=== PATIENT | female | born 1950 | race Hispanic/Latino ===

== ENCOUNTER 2020-03-12 17:02 | Inpatient (IN) | payer MEDICARE ==
[2020-03-12] MEDS ORDERED: Ondansetron ODT 4 MG TAB PO PRN (20:53)
[2020-03-12] MEDS ORDERED: Acetaminophen 325 MG TAB PO PRN (20:53)
[2020-03-12] MEDS ORDERED: Ondansetron PF 4 MG/2 ML Vial IVP PRN (20:53)
[2020-03-12] MEDS ORDERED: Melatonin 3 MG TAB PO PRN (20:53)
[2020-03-12] MEDS ORDERED: Calcium Carbonate 500 MG ChewTAB PO PRN (20:53)
--- NOTE | 2020-03-12 20:59 | PDOC.HHP ---
Hospitalist HPI - History of Present Illness mandibula pain History of Present Illness: Case of an 69y/o female with pmhx of crest syndrome chronic hyponatremia and pulmonary hypertension who comes to hospital transfer from [facility] due to mandibular abscess. patient refers she was on her usual state of health until 2 weeks ago when she had some denture removed. after the procedure she began with pain and called her dentist who refereed this was normal. she states kept pain kept progressing for which she visited her dentist and was prescribed tylenol #3. she states this was not enough to control the pain which she refers was 10/10 for which she went to a new [facility] which prescribed amoxicillin. patient states that despite this pain continued and she began having episodes of fever and chills and today when she woke up her face was extremely swollen and erythematous for which she decided to go to a hospital for evaluation and later transfer to this institution for surgeon evaluation. Hospitalist ROS - Review of Systems All other systems reviewed; all pertinent +/- noted in HPI/Subj Hospitalist History - Past Surgical History Past Surgical History: reports: Other Surgical History: d/c x 2 - Family History Family History: reports: cancer, cardiac disorder, diabetes mellitus, hypertension - Social History Smoking Status: Never smoker Alcohol: reports: Occassional Drugs: reports: none Living Situation: With Family - Exam General Appearance: NAD, awake alert Eye: PERRL, anicteric sclera ENT: normocephalic atraumatic, moist mucosa ENT - other findings: significant swelling of mandible and surrounding area Heart: RRR, no murmur, no gallops, no rubs, normal peripheral pulses Respiratory: CTAB, no wheezes, no rales, no ronchi Gastrointestinal: soft, non-tender, non-distended, normal bowel sounds Extremities: no cyanosis, no clubbing, no edema Skin: normal turgor, no lesions, no rashes Neurological: cranial nerve grossly intact, normal sensation to touch, no weakness Musculoskeletal: normal tone, normal strength, no muscle wasting Psychiatric: normal affect, normal behavior, A&O x 3 Hospitalist H&P A/P - Problem (1) Mandibular abscess Code(s): M27.2 - INFLAMMATORY CONDITIONS OF JAWS Status: Acute (2) Cellulitis Code(s): L03.90 - CELLULITIS, UNSPECIFIED Status: Acute (3) CREST syndrome Code(s): M34.1 - CR(E)ST SYNDROME Status: Acute (4) Pulmonary hypertension Code(s): I27.20 - PULMONARY HYPERTENSION, UNSPECIFIED Status: Acute (5) Chronic hyponatremia Code(s): E87.1 - HYPO-OSMOLALITY AND HYPONATREMIA Status: Acute - Plan Plan: 69y/o female with the stated pmhx who presents to hospital due to mandibular abscess mandibular abscess / cellulitis - ct consistent with abscess of mandible - surgeon consulted - on iv cleocin - pain management - npo after midnight chronic hyponatremia - pt referes lower than usual - will treat w ivfs - f/u bmp crest syndrome / pulmonary hypertension - continue home meds when able
[2020-03-12 22:37] VITALS: BMI 21.6
[2020-03-12] MEDS: Sodium Chloride 0.9% 1,000 ML IV SCH (23:11)
[2020-03-12] MEDS: Clindamycin/D5W 600 MG in Premix Bag 1 BAG IVPB SCH (23:12)
[2020-03-12] MEDS: HYDROcodone/Acetaminophen 5/325 mg Tablet PO PRN (23:12)
[2020-03-13 04:23] LABS: ALT (SGPT) 12 U/L (8-55); AST (SGOT) 21 U/L (5-34); Albumin 3.5 g/dL (3.4-4.8); Alkaline Phosphatase 92 U/L (40-110); Anion Gap 11 mmol/L (10-20); BUN (Urea Nitrogen) 8 mg/dL (9.8-20.1); Bilirubin, Total 0.4 mg/dL (0.2-1.2); Calc. Creatinine Clearance 63 mL/min (70-130); Calcium 8.4 mg/dL (7.8-10.44); Carbon Dioxide 26 mmol/L (23-31); Chloride 92 mmol/L (98-107); Estimated GFR-MDRD Greater than 90; Globulin 2.4 g/dL (2.4-3.5); Glucose 105 mg/dL (80-115); Potassium 3.8 mmol/L (3.5-5.1); Protein, Total 5.9 g/dL (6.0-8.3); Sodium 125 mmol/L (136-145)
[2020-03-13 04:47] LABS: Eosinophils 1 % (0-10); Hemoglobin 9.5 g/dL (12.0-16.0); Lymphocytes 10 % (21-51); MDiff Complete? YES; Mean Corpuscular HGB CONC 32.8 g/dL (32.0-36.0); Mean Corpuscular Hemoglobin 32.4 pg (27.0-31.0); Mean Corpuscular Volume 98.7 fL (78.0-98.0); Mean Platelet Volume 5.9 fL (7.4-10.4); Monocytes 14 % (0-10); Neutrophil 74 % (42-75); Platelet Count 191 thou/uL (130-400); RBC Distribution Width 13.1 % (11.5-14.5); Reactive Lymphocytes 1 % (0-10); Red Blood Cell (RBC) Count 2.92 mill/uL (4.20-5.40); White Blood Cell (WBC) Count 5.9 thou/uL (4.8-10.8)
[2020-03-13] MEDS: Clindamycin/D5W 600 MG in Premix Bag 1 BAG IVPB SCH ×4 (05:25→23:09)
[2020-03-13 05:33] LABS: SARS-CoV-2 MS2 Positive; SARS-CoV-2 N Gene Negative; SARS-CoV-2 S Gene Negative; SARS-CoV-2 by NAA Not Detected (NotDetected); SARS-CoV-2 orf1ab Negative
[2020-03-13] MEDS: HYDROcodone/Acetaminophen 5/325 mg Tablet PO PRN ×3 (06:10→21:26)
[2020-03-13] MEDS ORDERED: ALPRAZolam 0.5 MG TAB PO PRN (07:47)
[2020-03-13] MEDS ORDERED: Cepastat Lozenges 1 LOZ PO PRN (07:49)
[2020-03-13] MEDS ORDERED: Sodium Chloride 0.65% Nasal 44 ML BOT EA NARE PRN (07:49)
[2020-03-13] MEDS ORDERED: Bisacodyl 10 MG SUPP PR PRN (07:49)
[2020-03-13] MEDS ORDERED: hydrALAZINE 20 MG/ML VIAL SLOW IVP PRN (07:49)
[2020-03-13] MEDS ORDERED: Diabetic Tussin 200 MG/10 ML UDCUP PO PRN (07:49)
[2020-03-13] MEDS ORDERED: Loperamide HCl 2 MG CAP PO PRN (07:49)
[2020-03-13] MEDS ORDERED: Loratadine 10 MG TAB PO PRN (07:49)
[2020-03-13] MEDS ORDERED: Zolpidem Tartrate 5 MG TAB PO PRN (07:49)
[2020-03-13] MEDS ORDERED: FERROUS SULFATE 142 MG PO SCH (08:00)
[2020-03-13] MEDS: Enoxaparin Sodium 40 MG/0.4 ML SYRINGE SC SCH (08:21)
[2020-03-13] MEDS: Levothyroxine Sodium 50 MCG TAB PO SCH (08:21)
[2020-03-13] MEDS: Saccharomyces boulardii 250 MG CAP PO SCH (08:22)
[2020-03-13] MEDS: Ferrous Sulfate 325 MG TAB PO SCH (09:00)
[2020-03-13] MEDS: Furosemide 20 MG TAB PO SCH (09:00)
[2020-03-13] MEDS ORDERED: cycloSPORINE 0.05% Ophthalmic Droperette EA EYE SCH (09:00)
[2020-03-13] MEDS: Folic Acid 1 MG TAB PO SCH (09:00)
[2020-03-13] MEDS: cycloSPORINE 0.05% Ophthalmic Droperette EA EYE SCH ×2 (09:00→21:29)
[2020-03-13] MEDS: Aspirin 81 mg Enteric Coated Tablet PO SCH (09:00)
[2020-03-13] MEDS: Methotrexate Sodium 2.5 MG TAB PO SCH (09:00)
[2020-03-13] MEDS: Multivitamin W/ Minerals 1 TAB PO SCH (09:00)
[2020-03-13] MEDS: Hydroxychloroquine Sulfate 200 MG TAB PO SCH (09:00)
[2020-03-13] MEDS ORDERED: FLU VACC QS2020-21(65YR UP)/PF 240 MCG/0.7 ML SYRINGE IM ONE (09:00)
[2020-03-13] MEDS: Sodium Chloride 1 GM TAB PO SCH ×2 (09:00→18:06)
[2020-03-13 09:17] LABS: Bacteria/HPF None Seen HPF (None Seen); Bilirubin Negative (Negative); Blood, Urine Negative (Negative); Clarity Clear (Clear); Glucose, Urine (Dipstick) Normal (Negative); Ketone, Urine Negative (Negative); Leukocyte Negative Leu/uL (Negative); Nitrite Negative (Negative); Protein, Urine (Dipstick) 30 mg/dL (Neg-Trace); RBC/HPF 0-3 HPF (0-3); Specific Gravity, Urine 1.042 (1.002-1.036); Squamous Epithelial 0-3 HPF (0-3); Urobilinogen Normal mg/dL (Less than 2); pH, Urine 6.5 (5.0-9.0)
[2020-03-13 09:18] LABS: Urine Culture Reflex Yes Yes
--- NOTE | 2020-03-13 11:13 | PDOC.HOSPP ---
- Subjective Encounter Date: 03/13/20 Subjective: Patient has no new health concerns. Jaw lesion is still worker helper to touch, but no pain at rest. She is hungry and thirsty, as per NPO orders as she awaits surgery. She slept well overnight, despite not having her regular night-time O2. She denies fever, SOB, chest pain, or generalized fatigue. - Objective Vital Signs & Weight: Vital Signs (12 hours) Temp Pulse Resp BP Pulse Ox 03/13/20 07:40 99.5 F 75 18 114/63 93 L 03/13/20 03:53 99.0 F 77 12 132/60 93 L 03/12/20 23:36 99.1 F 82 14 147/66 H 92 L Weight Weight 48.534 kg I&O: 03/12/20 03/13/20 03/14/20 06:59 06:59 06:59 Intake Total 460 Balance 460 Result Diagrams: 03/13/20 03:32 03/13/20 03:32 Hospitalist ROS - Review of Systems Constitutional: denies: fever, chills, sweats, weakness Eyes: denies: vision change ENT: denies: throat pain, throat swelling Respiratory: denies: shortness of breath, pleuritic pain Cardiovascular: denies: chest pain, edema Gastrointestinal: denies: nausea, vomiting, abdominal pain, diarrhea, constipation Genitourinary: denies: dysuria Musculoskeletal: reports: other (Denies generalized mm. pain) Skin: denies: rash, bruising Neurological: denies: weakness - Medication Medications: Active Medications Generic Name Dose Route Start Last Admin Trade Name Gaelq PRN Reason Stop Dose Admin Hydrocodone Bitart/Acetaminophen 2 tab 03/12/20 20:53 03/13/20 06:10 Hydrocodone/Acetaminophen 5/325 Mg Tablet PO 2 tab Q4H PRN Administration Severe Pain (7-10) Enoxaparin Sodium 40 mg 03/13/20 09:00 03/13/20 08:21 Enoxaparin Sodium 40 Mg/0.4 Ml Syringe SC 40 mg 0900 TANESHA Administration Clindamycin Phosphate/Dextrose 50 mls @ 100 mls/hr 03/12/20 23:59 03/13/20 05:25 600 mg/ Device IVPB 50 mls Q6HR TANESHA Administration Sodium Chloride 1,000 mls @ 40 mls/hr 03/12/20 21:00 03/12/20 23:11 Normal Saline 0.9% IV 1,000 mls .Q24H TANESHA Administration Levothyroxine Sodium 50 mcg 03/13/20 09:00 03/13/20 08:21 Levothyroxine Sodium 50 Mcg Tab PO 50 mcg DAILY TANESHA Administration Saccharomyces Boulardii 250 mg 03/13/20 09:00 03/13/20 08:22 Saccharomyces Boulardii 250 Mg Cap PO 250 mg DAILY TANESHA Administration - Exam General Appearance: NAD, awake alert Eye: anicteric sclera ENT: normocephalic atraumatic, no oropharyngeal lesions ENT - other findings: Left sided mandibular swelling with tenderness to lateral left chin Neck: supple, symmetric, no JVD Heart: RRR, murmur present, III/IV (systolic, crescendo-decrescendo radiating to the carotids) Respiratory: CTAB, no wheezes, no rales, no ronchi, normal chest expansion Gastrointestinal: soft, non-tender, non-distended, normal bowel sounds Extremities: no cyanosis, no clubbing, no edema (Sclerotic digits present) Neurological: no focal deficits Musculoskeletal: no muscle wasting Psychiatric: normal affect, normal behavior, A&O x 3 Hosp A/P (1) CREST syndrome Code(s): M34.1 - CR(E)ST SYNDROME Status: Acute (2) Chronic hyponatremia Code(s): E87.1 - HYPO-OSMOLALITY AND HYPONATREMIA Status: Acute (3) Mandibular abscess Code(s): M27.2 - INFLAMMATORY CONDITIONS OF JAWS Status: Acute (4) Pulmonary hypertension Code(s): I27.20 - PULMONARY HYPERTENSION, UNSPECIFIED Status: Acute - Plan old records reviewed/req This patient is a 69 YO female with a PMH of CREST syndrome, chronic hyponatremia, and pulmonary HTN who presented yesterday with CC of jaw swelling secondary to mandibular abscess. She is awaiting surgery consult today and is NPO. Her O2 has been low 90s since admission. BP has normalized from 130s systolic yesterday to 114/63 this am. No fever and no leukocytosis or bandemia. H/H is 9.5/28.8 and Sodium is 125. 1. 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 Hyponatremia: at 125 at 3:32 today -continue IV NS and recheck CMP tomorrow am 3. Low O2 sat: denies difficulty breathing but usually requires night-time O2 -monitor vitals Qshift -begin 1L nasal cannula if pt becomes SOB or O2 drops below 90% 4. Normocytic anemia: likely anemia of chronic disease secondary to CREST -monitor CBC qam Patient seen and examined bedside today, agree with above-mentioned note, will consult oral surgeon as ENT cannot do I&D,
--- NOTE | 2020-03-13 12:43 | PDOC.HOSPP ---
- Subjective Encounter Date: 03/13/20 Encounter Time: 10:10 Subjective: Patient seen and examined. No new complaints. No overnight events - Objective Vital Signs & Weight: Vital Signs (12 hours) Temp Pulse Resp BP BP Pulse Ox 03/13/20 12:00 99.1 F 76 18 117/57 L 93 L 03/13/20 08:00 99.5 F 75 18 114/63 93 L 03/13/20 07:40 99.5 F 75 18 114/63 93 L 03/13/20 03:53 99.0 F 77 12 132/60 93 L Weight Weight 107 lb I&O: 03/12/20 03/13/20 03/14/20 06:59 06:59 06:59 Intake Total 460 Balance 460 Result Diagrams: 03/13/20 03:32 03/13/20 03:32 Hospitalist ROS - Review of Systems ENT: denies: ear pain, ear discharge, nose pain, nose discharge, nose congestion, mouth pain, mouth swelling, throat pain, throat swelling, other Respiratory: denies: cough, dry, shortness of breath, hemoptysis, SOB with excertion, pleuritic pain, sputum, wheezing, other Cardiovascular: denies: chest pain, palpitations, orthopnea, paroxysmal noc. dyspnea, edema, light headedness, other Gastrointestinal: denies: nausea, vomiting, abdominal pain, diarrhea, con stipation, melena, hematochezia, other Genitourinary: denies: dysuria, frequency, incontinence, hematuria, retention, other Musculoskeletal: denies: neck pain, shoulder pain, arm pain, back pain, hand pain, leg pain, foot pain, other - Medication Medications: Active Medications Generic Name Dose Route Start Last Admin Trade Name Freq PRN Reason Stop Dose Admin Hydrocodone Bitart/Acetaminophen 2 tab 03/12/20 20:53 03/13/20 06:10 Hydrocodone/Acetaminophen 5/325 Mg Tablet PO 2 tab Q4H PRN Administration Severe Pain (7-10) Enoxaparin Sodium 40 mg 03/13/20 09:00 03/13/20 08:21 Enoxaparin Sodium 40 Mg/0.4 Ml Syringe SC 40 mg 0900 TANESHA Administration Clindamycin Phosphate/Dextrose 50 mls @ 100 mls/hr 03/12/20 23:59 03/13/20 05:25 600 mg/ Device IVPB 50 mls Q6HR TANESHA Administration Sodium Chloride 1,000 mls @ 40 mls/hr 03/12/20 21:00 03/12/20 23:11 Normal Saline 0.9% IV 1,000 mls .Q24H TANESHA Administration Levothyroxine Sodium 50 mcg 03/13/20 09:00 03/13/20 08:21 Levothyroxine Sodium 50 Mcg Tab PO 50 mcg DAILY TANESHA Administration Saccharomyces Boulardii 250 mg 03/13/20 09:00 03/13/20 08:22 Saccharomyces Boulardii 250 Mg Cap PO 250 mg DAILY TANESHA Administration - Exam General Appearance: NAD, awake alert Eye: PERRL, anicteric sclera ENT: normocephalic atraumatic, no oropharyngeal lesions Neck: supple, symmetric, no JVD Heart: RRR, no murmur, no gallops Respiratory: no wheezes, no rales, no ronchi Gastrointestinal: soft, non-tender, non-distended, normal bowel sounds Extremities: no cyanosis, no clubbing Skin: normal turgor, no lesions Neurological: no focal deficits Musculoskeletal: normal tone, normal strength Psychiatric: normal affect, normal behavior Hosp A/P (1) CREST syndrome Code(s): M34.1 - CR(E)ST SYNDROME Status: Acute (2) Chronic hyponatremia Code(s): E87.1 - HYPO-OSMOLALITY AND HYPONATREMIA Status: Acute (3) Mandibular abscess Code(s): M27.2 - INFLAMMATORY CONDITIONS OF JAWS Status: Acute (4) Pulmonary hypertension Code(s): I27.20 - PULMONARY HYPERTENSION, UNSPECIFIED Status: Acute - Plan old records reviewed/req, continue antibiotics This patient is a 69 YO female with a PMH of CREST syndrome, chronic hyponatremia, and pulmonary HTN who presented yesterday with CC of jaw swelling secondary to mandibular abscess. She is awaiting surgery consult today and is NPO. Her O2 has been low 90s since admission. BP has normalized from 130s s ystolic yesterday to 114/63 this am. No fever and no leukocytosis or bandemia. H/H is 9.5/28.8 and Sodium is 125. 1. Mandibular abscess vs cellulitis -awaiting ENT consult; AUTOMATIC FABRIC CUTTER has faxed over CT report, but will repeat imaging here as per ENT -continue IV Clindamycin and pain meds PRN -monitor CBC qam and vitals Qshift -NPO awaiting surgery 2. Hyponatremia: at 125 at 3:32 today -continue IV NS and recheck CMP tomorrow am 3. Low O2 sat: denies difficulty breathing but usually requires night-time O2 -monitor vitals Qshift -begin 1L nasal cannula if pt becomes SOB or O2 drops below 90% 4. Normocytic anemia: likely anemia of chronic disease secondary to CREST -monitor CBC qam Patient seen and examined bedside today, agree with above-mentioned note, will consult oral surgeon as ENT cannot do I&D,
[2020-03-13] MEDS ORDERED: TADALAFIL 20 MG PO SCH (17:00)
[2020-03-13] MEDS ORDERED: [UNRECOGNIZED DRUG - OTHER] PO SCH (17:00)
[2020-03-13] MEDS ORDERED: DHA PO SCH (17:00)
[2020-03-13] MEDS ORDERED: FISH OIL PO SCH (17:00)
[2020-03-13] MEDS ORDERED: OMEGA3 PO SCH (17:00)
[2020-03-13] MEDS ORDERED: EPA PO SCH (17:00)
[2020-03-13] MEDS ORDERED: VIT D3 PO SCH (17:00)
[2020-03-13] MEDS: Fish Oil 1,000 MG CAP PO SCH (17:50)
[2020-03-13] MEDS: Calcium Carbonate 600 MG TAB PO SCH (17:51)
[2020-03-13] MEDS ORDERED: MACITENTAN 10 MG PO SCH (21:00)
[2020-03-13] MEDS: Sodium Chloride 0.9% 1,000 ML IV SCH (21:28)
--- NOTE | 2020-03-14 01:21 | CON ---
DATE OF CONSULTATION: 03/13/2020 CONSULTING PHYSICIAN: Dr. Kovacs. HISTORY OF PRESENT ILLNESS: This is a 69-year-old female who reports having teeth removed several weeks back by a dentist in [facility]. Her postoperative course was complicated by persistent pain and lack of improvement. She states that she returned at some point to the dentist and was determined that a piece of the tooth was left in place, and additional procedure was undertaken at that time to remove this retained piece of tooth. She continued to have issues postoperatively without significant help from the dentist, and she ultimately went to new dentist yesterday and was prescribed amoxicillin. Today, she woke and had significant increase in swelling in the face and presented to an outside hospital. She was subsequently transferred here for higher level of care and I was consulted for evaluation and management due to concerns for facial cellulitis and possible abscess. PAST MEDICAL HISTORY: CREST syndrome, chronic hyponatremia, and pulmonary hypertension. PAST SURGICAL HISTORY: , D and C. SOCIAL HISTORY: Negative for smoking or drugs. Positive for occasional alcohol. CURRENT MEDICATIONS: 1. [place]. 2. Xanax. 3. Aspirin. 4. Dulcolax. 5. Clindamycin 600 mg IV q.6 hours. 6. Lovenox. 7. Lasix. 8. Hydralazine. 9. Hydroxychloroquine sulfate. 10. Levothyroxine. 11. Loperamide. 12. Claritin. 13. Methotrexate. 14. Zofran. 15. Adcirca. 16. Opsumit. ALLERGIES: AZITHROMYCIN, NITROFURANTOIN, PENICILLINS, AND PREDNISONE. REVIEW OF SYSTEMS: Reports the swelling and pain in the submental and anterior perimandibular region. Otherwise, review of systems negative. PHYSICAL EXAMINATION: VITAL SIGNS: Blood pressure 124/58, pulse is 82, temperature 99.1, and 92% oxygen on room air. GENERAL: Alert and oriented x3, in no apparent distress. HEAD AND NECK: No significant cellulitis or edema noted intraorally throughout the buccal and labial vestibule or floor of mouth. All mandibular surgical sites in the mouth appear to be relatively well healed. There is slight gingival erythema in the tooth 26 region. Tooth 28 region where the patient supports the majority of her postoperative healing problems came from, appears relatively well healed without any significant signs of inflammation or infection. The patient is tender to palpation in the anterior submental region and possibly up into the mental region. It is difficult to appreciate any significant facial swelling and it is also difficult to determine and what is cellulitic versus what is tense and fibrotic tissues likely related to her CREST syndrome. More posteriorly in the neck, the tissue is fibrotic and hard feeling. The patient states that this is her baseline normal in this region. Further anteriorly, it is difficult to clearly discern a difference between the anterior aspect and the posterior aspect the patient feels is normal for her. Maximum interincisal opening is normal. LABORATORY DATA: White blood cell count 5.9, hemoglobin 9.5, platelets 191. Chemistry shows a low sodium at 125, low chloride at 92. Negative for SARS-CoV-[address] scan of the face and neck from the outside hospital shows possible fluid collection in the labial vestibular region of the anterior mandible with possibly some signs of cellulitis in the mental and submental regions. On bony windows, there is question about whether or not the patient has retained root tips in the approximately 24th and 25th regions. Additionally, there are some possible changes in the tooth #28 region with areas of hypodensity in the bone, which could be consistent with osteolytic changes such as that seen in early osteomyelitis. However, these changes are somewhat subtle and difficult to definitively diagnose particularly in the context of relatively normal clinical exam in this region. ASSESSMENT: A 69-year-old female status post removal of multiple teeth several weeks prior with postoperative course complicated by refractory pain and difficulty healing, who presents to our hospital with cellulitis involving the mental and submental regions with possible vestibular, perimandibular abscess in the mandibular labial region. Additionally, the patient has changes on CT scan, which could suggest early osteolytic process such as early osteomyelitis. However, this is not definitive and the patient possibly has retained root tips in the 24th and 25th region, which also could be contributing to her current infection. PLAN: 1. Continue IV antibiotics. 2. Start Peridex oral rinses b.i.d. 3. N.p.o. after midnight for a possible trip to the operating room tomorrow pending re-evaluation in the morning. 4. We will continue to follow and consider consultation with Dr. Piña, pending further observation. Job ID: [id number]
[2020-03-14 03:54] LABS: Anion Gap 10 mmol/L (10-20); BUN (Urea Nitrogen) 9 mg/dL (9.8-20.1); Calc. Creatinine Clearance 63 mL/min (70-130); Calcium 8.2 mg/dL (7.8-10.44); Carbon Dioxide 26 mmol/L (23-31); Chloride 95 mmol/L (98-107); Estimated GFR-MDRD Greater than 90; Glucose 80 mg/dL (80-115); Potassium 3.8 mmol/L (3.5-5.1); Sodium 127 mmol/L (136-145)
[2020-03-14 04:52] LABS: Band 11 % (5-11); Eosinophils 2 % (0-10); Hemoglobin 8.9 g/dL (12.0-16.0); Lymphocytes 16 % (21-51); MDiff Complete? YES; Macrocytosis SLIGHT = 6-15 cells (100X) (0-5/hpf); Mean Corpuscular HGB CONC 33.7 g/dL (32.0-36.0); Mean Corpuscular Hemoglobin 33.1 pg (27.0-31.0); Mean Corpuscular Volume 98.3 fL (78.0-98.0); Mean Platelet Volume 5.4 fL (7.4-10.4); Monocytes 14 % (0-10); Neutrophil 57 % (42-75); Platelet Count 148 thou/uL (130-400); Platelet Morphology Comment Appears Adequate; RBC Distribution Width 13.1 % (11.5-14.5); Red Blood Cell (RBC) Count 2.68 mill/uL (4.20-5.40); White Blood Cell (WBC) Count 4.9 thou/uL (4.8-10.8)
[2020-03-14] MEDS: Clindamycin/D5W 600 MG in Premix Bag 1 BAG IVPB SCH ×2 (05:56→12:00)
[2020-03-14] MEDS: HYDROcodone/Acetaminophen 5/325 mg Tablet PO PRN ×2 (08:44→19:24)
[2020-03-14] MEDS: Saccharomyces boulardii 250 MG CAP PO SCH (08:47)
[2020-03-14] MEDS: Hydroxychloroquine Sulfate 200 MG TAB PO SCH (08:47)
[2020-03-14] MEDS: Enoxaparin Sodium 40 MG/0.4 ML SYRINGE SC SCH (08:47)
[2020-03-14] MEDS: Levothyroxine Sodium 50 MCG TAB PO SCH (08:47)
[2020-03-14] MEDS: Folic Acid 1 MG TAB PO SCH (08:47)
[2020-03-14] MEDS: Aspirin 81 mg Enteric Coated Tablet PO SCH (08:47)
[2020-03-14] MEDS: Sodium Chloride 1 GM TAB PO SCH (08:47)
[2020-03-14] MEDS: Furosemide 20 MG TAB PO SCH (08:47)
[2020-03-14] MEDS: cycloSPORINE 0.05% Ophthalmic Droperette EA EYE SCH ×2 (08:47→21:24)
[2020-03-14] MEDS ORDERED: Iopamidol-370 76% 500 ML 1 ML ONE (13:06)
--- NOTE | 2020-03-14 13:55 | PDOC.HOSPP ---
- Subjective Encounter Date: 03/14/20 Encounter Time: 11:30 Subjective: Patient seen and examined. No new complaints. No overnight events - Objective Vital Signs & Weight: Vital Signs (12 hours) Temp Pulse Resp BP Pulse Ox 03/14/20 08:00 99.1 F 83 18 146/60 H 98 Weight Weight 107 lb I&O: 03/13/20 03/14/20 03/15/20 06:59 06:59 06:59 Intake Total 460 700 Balance 460 700 Result Diagrams: 03/14/20 03:22 03/14/20 03:22 Hospitalist ROS - Review of Systems Respiratory: denies: cough, dry, shortness of breath, hemoptysis, SOB with excertion, pleuritic pain, sputum, wheezing, other Cardiovascular: denies: chest pain, palpitations, orthopnea, paroxysmal noc. dyspnea, edema, light headedness, other Gastrointestinal: denies: nausea, vomiting, abdominal pain, diarrhea, constipation, melena, hematochezia, other Genitourinary: denies: dysuria, frequency, incontinence, hematuria, retention, other Musculoskeletal: denies: neck pain, shoulder pain, arm pain, back pain, hand pain, leg pain, foot pain, other - Medication Medications: Active Medications Generic Name Dose Route Start Last Admin Trade Name Freq PRN Reason Stop Dose Admin Hydrocodone Bitart/Acetaminophen 2 tab 03/12/20 20:53 03/14/20 08:44 Hydrocodone/Acetaminophen 5/325 Mg Tablet PO 2 tab Q4H PRN Administration Severe Pain (7-10) Aspirin 81 mg 03/13/20 09:00 03/14/20 08:47 Aspirin 81 Mg Enteric Coated Tablet PO Not Given DAILY [facility] Calcium Carbonate 600 mg 03/13/20 17:00 03/13/20 17:51 Calcium Carbonate 600 Mg Tab PO 600 mg 1700 [facility] Administration Cyclosporine 0 ml 03/13/20 09:00 03/14/20 08:47 Cyclosporine 0.05% Ophthalmic [place] EA EYE Not Given BID [facility] Enoxaparin Sodium 40 mg 03/13/20 09:00 03/14/20 08:47 Enoxaparin Sodium 40 Mg/0.4 Ml Syringe SC Not Given 0900 [facility] Ferrous Sulfate 325 mg 03/13/20 09:00 03/13/20 09:00 Ferrous Sulfate 325 Mg Tab PO Not Given Q2D [facility] Fish Oil 1,000 mg 03/13/20 17:00 03/13/20 17:50 Fish Oil 1,000 Mg Cap PO 1,000 mg 1700 TANESHA Administration Folic Acid 1 mg 03/13/20 09:00 03/14/20 08:47 Folic Acid 1 Mg Tab PO Not Given DAILY TANESHA Furosemide 20 mg 03/13/20 09:00 03/14/20 08:47 Furosemide 20 Mg Tab PO Not Given DAILY TANESHA Hydroxychloroquine Sulfate 200 mg 03/13/20 09:00 03/14/20 08:47 Hydroxychloroquine Sulfate 200 Mg Tab PO Not Given DAILY TANESHA Clindamycin Phosphate/Dextrose 50 mls @ 100 mls/hr 03/12/20 23:59 03/14/20 05:56 600 mg/ Device IVPB 50 mls Q6HR TANESHA Administration Sodium Chloride 1,000 mls @ 40 mls/hr 03/12/20 21:00 03/13/20 21:28 Normal Saline 0.9% IV 1,000 mls .Q24H TANESHA Administration Iron/Minerals/Multivitamins 1 tab 03/13/20 09:00 03/13/20 09:00 Multivitamin W/ Minerals 1 Tab PO Not Given Q2D TANESHA Levothyroxine Sodium 50 mcg 03/13/20 09:00 03/14/20 08:47 Levothyroxine Sodium 50 Mcg Tab PO Not Given DAILY TANESHA Methotrexate Sodium 2.5 mg 03/13/20 09:00 03/13/20 09:00 Methotrexate Sodium 2.5 Mg Tab PO Not Given Q7D TANESHA Saccharomyces Boulardii 250 mg 03/13/20 09:00 03/14/20 08:47 Saccharomyces Boulardii 250 Mg Cap PO Not Given DAILY TANESHA Sodium Chloride 1 gm 03/13/20 09:00 03/14/20 08:47 Sodium Chloride 1 Gm Tab PO Not Given DAILY TANESHA Sodium Chloride 10 ml 03/13/20 09:00 03/13/20 21:28 Flush - Normal Saline 10 Ml Syringe IVF 10 ml Q12HR TANESHA Administration - Exam General Appearance: NAD, awake alert Eye: PERRL, anicteric sclera ENT: normocephalic atraumatic, no oropharyngeal lesions Neck: supple, symmetric, no JVD, no thyromegaly Heart: RRR, no gallops, no rubs, murmur present Respiratory: no wheezes, no rales, no ronchi Gastrointestinal: soft, non-tender, non-distended, normal bowel sounds Extremities: no clubbing, no edema Skin: normal turgor, no lesions Neurological: no focal deficits Musculoskeletal: normal tone, normal strength Psychiatric: normal affect, normal behavior Hosp A/P (1) Mandibular abscess Code(s): M27.2 - INFLAMMATORY CONDITIONS OF JAWS Status: Acute (2) CREST syndrome Code(s): M34.1 - CR(E)ST SYNDROME Status: Chronic (3) Chronic hyponatremia Code(s): E87.1 - HYPO-OSMOLALITY AND HYPONATREMIA Status: Chronic (4) Pulmonary hypertension Code(s): I27.20 - PULMONARY HYPERTENSION, UNSPECIFIED Status: Chronic - Plan old records reviewed/req, continue antibiotics Continue IV clindamycin, patient does not have any clinical change in appearance of swelling over mandible, We will consult infectious disease for evaluation Oral surgeon to decide about incision and debridement
[2020-03-14] MEDS ORDERED: Lidocaine 1% w/Epinephrine 1:100K 20 ML VIAL ONE (15:27)
[2020-03-14] MEDS ORDERED: Bacitracin Zinc Ointment 30 gm TUBE ONE (15:28)
[2020-03-14] MEDS ORDERED: Sodium Chloride 0.9% 10 ML ONE (15:28)
[2020-03-14] MEDS ORDERED: Chlorhexidine Gluconate 15 ML UDCUP SSP ONE ×2 (15:28→16:31)
--- NOTE | 2020-03-14 16:16 | CON ---
DATE OF CONSULTATION: 03/14/2020 REASON FOR CONSULTATION: Submandibular inflammatory process. HISTORY OF PRESENT ILLNESS: A 69-year-old with diagnosis of pulmonary hypertension more than 7 years ago and subsequently identified with CREST syndrome been managed previously with methylprednisolone and now this was switched to Plaquenil and methotrexate and tadalafil among other treatments, who had a tooth extracted in the right mandible several weeks back, which now has progressed to a diffuse inflammatory process in the submandibular area with some element of trismus and pain on mastication. After failing outpatient management with oral antimicrobial therapy, she has been admitted. Dr. Lantigua is going to do a surgical procedure later on today. Right now, she does not appear in distress. No headaches. No visual symptoms. Oral cavity pain and some trismus as well as radiosonde operator pain. No neck pain. Mild dyspnea. She has O2 supplementation at home and no chest pain. No cough or sputum production. No abdominal pain or diarrhea. No genitourinary symptoms. PAST MEDICAL HISTORY: Scleroderma systemic with CREST syndrome, pulmonary hypertension. PAST SURGICAL HISTORY: . SOCIAL HISTORY: Retired cook school cafeteria. She used to live in [place] all her life. Never smoker. She now moved to this area to be with her daughter. Drinks occasionally. MEDICATIONS: 1. [place]. 2. Xanax. 3. Aspirin. 4. Dulcolax. 5. Clindamycin. 6. Lovenox. 7. Lasix. 8. Hydralazine. 9. Plaquenil. 10. Levothyroxine. 11. Loperamide. 12. Claritin. 13. Methotrexate. 14. Zofran. 15. Adcirca. 16. Macitentan, which is an endothelin receptor antagonist for the treatment of pulmonary arterial hypertension. ALLERGIES: AZITHROMYCIN, NITROFURANTOIN, PENICILLIN, AND PREDNISONE. FAMILY HISTORY: Noncontributory. PHYSICAL EXAMINATION: VITAL SIGNS: T-max 99.5 to 99.7, blood pressure 140/60, heart rate 83, respiratory rate 18, and O2 saturation 98% on 2 L nasal cannula. SKIN: Shows tightening of the skin, which is diffuse as expected, some telangiectases in periungual area. LYMPHATIC: No lymphadenopathy. HEENT: Some element of alopecia. Ocular movements conjugate. Oral cavity with numerous missing teeth. There is diffuse submandibular swelling and tenderness, but no drainage. NECK: Supple. No jugular vein distention. LUNGS: Symmetric, clear breath sounds. HEART: S1 and S2. Regular rate. BACK: No back tenderness. ABDOMEN: No organomegaly. No ascites. No bladder distention. No joint inflammatory activity. EXTREMITIES: No edema. Pulses 1+ in dorsalis pedis. NEUROLOGIC: Nonfocal. LABORATORY DATA: White cell count 5.9 and 4.9, hemoglobin 8.9, platelets 148 with 11% bands. Sodium 127, creatinine 0.64. Liver profile normal. Serum total protein 5.9, albumin 3.5. Urinalysis, 7 to 10 wbc's, 30 protein. SARS-CoV not detected. I do not have a chest x-ray here and there is no imaging study of the mandibular area. ASSESSMENT: 1. Scleroderma with CREST syndrome, on various treatments. 2. Dental extraction with submandibular inflammatory process for the past few weeks, which failed outpatient therapy. DISCUSSION: The patient has the usual complication following dental extractions and this has spread now to the left side. She would need a CT of the head and neck or just neck soft tissues, but I am going to wait for Dr. Lantigua to finish his workup and then see what he is going to do and find and we will go from there. She does have some problems with swallowing with pain and she may have inflammatory process in the radiosonde operator space. Extension through the lateral pharyngeal area is a concern as well as posterior pharyngeal area and we will switch her to meropenem. Discontinue clindamycin. She will need protracted antimicrobial therapy plus in addition to surgical intervention. Job ID: [id number]
[2020-03-14] MEDS ORDERED: Clindamycin/D5W 600 mg/50 ml Premix Bag ONE (16:44)
[2020-03-14] MEDS ORDERED: Fentanyl 100 MCG/2 ML VIAL ONE ×2 (17:05→18:11)
[2020-03-14] MEDS ORDERED: Midazolam HCl 2 mg/2 ml Vial ONE (17:05)
[2020-03-14] MEDS: Fish Oil 1,000 MG CAP PO SCH (17:44)
[2020-03-14] MEDS: Calcium Carbonate 600 MG TAB PO SCH (17:44)
[2020-03-14] MEDS ORDERED: PACU-Morphine 4MG/ML VIAL SLOW IVP PRN (17:48)
[2020-03-14] MEDS: MEROPENEM 1 GM/50 ML 1 GM in Premix Bag 1 BAG IVPB SCH (19:18)
[2020-03-14] MEDS: Sodium Chloride 0.9% 1,000 ML IV SCH (21:24)
--- NOTE | 2020-03-14 21:52 | CT ---
CT of the neck with IV contrast: 03/14/2020 COMPARISON: None HISTORY: Pain, swelling, tooth extraction TECHNIQUE: Axial CT imaging at 2.5 mm intervals through the neck with IV contrast. Coronal and sagitt al reformatted imaging obtained FINDINGS: The imaged brain parenchyma is grossly unremarkable. There is mild scattered opacification of the ethmoid air cells. The retroantral fat and parapharyngeal fat appears grossly unremarkable. The parotid glands and the s ubmandibular glands demonstrate fatty atrophy. The imaged lung apices demonstrate prominent linear interstitial density and superimposed groundglass opacity, a nonspecific finding. The tonsillar pillars, the epiglottis and preepiglottic fat, the hyoid bone, the thyroid cartilage, c ricoid cartilage, the level of the glottis, and the thyroid gland demonstrate no acute findings. There is a mildly enlarged lymph node in the superior mediastinum measuring 1 cm anterior to the trac hea. There is diffuse stranding of the subcutaneous fat throughout the neck from the axial level of the an gle of the mandible through the axial level of the thyroid gland, most prominent anterior to the mandible. Anterior to the cortex of the midline mandible there is ill-defined focal hypodensity which appears to be gingival based, measuring 1.4 cm in craniocaudal dimension, 1.4 cm in AP dimension, and 1.2 cm in transverse dimension. This is suspicious for a gingival based abscess extending into th e region of the lower lip. Surrounding soft tissue stranding and fat stranding suggest associated cellulitis. Many of the mandibular and maxillary teeth are absent. Limited assessment of the vascular structures demonstrates scattered atherosclerotic calcification in volving the distal common carotid artery and the proximal internal carotid artery bilaterally. Review of the osseous structures demonstrates no worrisome lytic or blastic bone lesion. The lower lip and to a lesser degree, the upper lip appear edematous and enlarged, particularly on th e sagittal images. IMPRESSION: Diffuse skin thickening and subcutaneous fat stranding as detailed above, most prominent anterior to the midline mandible which suggests gingival based abscess with soft tissue extension and surrounding associated cellulitis. Follow-up imaging following treatment to document resolution i s advised. Underlying mass lesion in this region cannot be excluded.
[2020-03-14] MEDS ORDERED: Chlorhexidine Gluconate 15 ML UDCUP SSP SCH (22:15)
[2020-03-15] MEDS: MEROPENEM 1 GM/50 ML 1 GM in Premix Bag 1 BAG IVPB SCH ×3 (00:49→16:57)
[2020-03-15] MEDS: HYDROcodone/Acetaminophen 5/325 mg Tablet PO PRN ×2 (08:05→23:22)
[2020-03-15] MEDS: Levothyroxine Sodium 50 MCG TAB PO SCH (09:12)
[2020-03-15] MEDS: Sodium Chloride 1 GM TAB PO SCH (09:12)
[2020-03-15] MEDS: Aspirin 81 mg Enteric Coated Tablet PO SCH (09:12)
[2020-03-15] MEDS: Folic Acid 1 MG TAB PO SCH (09:12)
[2020-03-15] MEDS: Saccharomyces boulardii 250 MG CAP PO SCH (09:12)
[2020-03-15] MEDS: Hydroxychloroquine Sulfate 200 MG TAB PO SCH (09:13)
[2020-03-15] MEDS: Furosemide 20 MG TAB PO SCH (09:13)
[2020-03-15] MEDS: Chlorhexidine Gluconate 15 ML UDCUP SSP SCH ×2 (09:14→21:01)
[2020-03-15] MEDS: Enoxaparin Sodium 40 MG/0.4 ML SYRINGE SC SCH (09:14)
[2020-03-15] MEDS: cycloSPORINE 0.05% Ophthalmic Droperette EA EYE SCH ×2 (09:16→21:00)
[2020-03-15] MEDS: Ferrous Sulfate 325 MG TAB PO SCH (09:19)
[2020-03-15] MEDS: Multivitamin W/ Minerals 1 TAB PO SCH (09:19)
--- NOTE | 2020-03-15 10:39 | OP ---
DATE OF PROCEDURE: 03/14/2020 PREOPERATIVE DIAGNOSES: 1. Submental cellulitis. 2. Mandibular labial vestibular abscess. POSTOPERATIVE DIAGNOSES: 1. Mandibular labial vestibular abscess. 2. Submental cellulitis. 3. 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 PROCEDURES PERFORMED: Transoral incision and drainage of mandibular labial vestibular abscess. INDICATION: This is a female with a complicated past medical history including CREST syndrome and pulmonary hypertension, who is on chronic immunosuppression and has a prolonged 4 to 5-year history of risedronate use, who had multiple teeth removed towards the beginning of January by her dentist. She had a protracted and problematic postoperative course with delayed healing, possibly retained root fragments, which were subsequently removed and more recently acute onset of cellulitis and swelling in the perimandibular region, for which she presented to an outside hospital. 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 She is brought to the operating room at this time for incision and drainage of the possible labial vestibular abscess. DESCRIPTION OF PROCEDURE: The patient was identified in preoperative holding and all questions were answered. She was subsequently taken to the operating room and a conscious intravenous sedation was performed by the Anesthesia Service. The oral cavity was prepped and a surgical time-out was performed. Local anesthetic was delivered with mental nerve blocks using lidocaine and epinephrine. After local anesthesia was obtained, a 15 blade was used to make a vestibular incision in the anterior right mandibular region labially. The labial vestibule was opened and a small amount of purulent sanguineous type discharge was countered. Culture swabs were taken and sent for Gram stain, culture and sensitivities. The vestibule was opened extending down to the inferior border region and all purulent sanguinous type discharge was decompressed. This wound was debrided and irrigated copiously with bacitracin infused normal saline. After copious irrigation and decompression of the fluid collection, the patient's oral cavity was suctioned free of fluid, debris, and the gauze pressure pack was placed, soaked in bacitracin, infused normal saline. The patient recovered from the conscious sedation without difficulty and was transferred to recovery room in good condition. ESTIMATED BLOOD LOSS: 5 mL. INTRAVENOUS FLUIDS: Please see anesthetic record. SPECIMENS: Purulent sanguinous discharge from the mandibular labial vestibule. IMPLANTS: None. DRAINS: None. FINDINGS: Purulent sanguinous discharge from the mandibular labial vestibular region. DISPOSITION: The patient tolerated the procedure well. She was transferred to the recovery room in good condition. Job ID: [id number]
--- NOTE | 2020-03-15 16:30 | PDOC.HOSPP ---
- Subjective Encounter Date: 03/15/20 Encounter Time: 07:00 Subjective: Patient seen for follow-up regarding mandibular abscess. She reports feeling better. She denies chest pain or shortness of breath. - Objective Vital Signs & Weight: Vital Signs (12 hours) Temp Pulse Resp BP Pulse Ox 03/15/20 08:00 98.7 F 91 18 144/67 H 99 03/15/20 04:56 98.4 F 79 16 151/65 H 100 Weight Weight 107 lb I&O: 03/14/20 03/15/20 03/16/20 06:59 06:59 06:59 Intake Total 700 420 Balance 700 420 Result Diagrams: 03/14/20 03:22 03/14/20 03:22 Additional Labs: Labs and MAR reviewed by nc Hospitalist ROS - Review of Systems Cardiovascular: denies: chest pain, palpitations, orthopnea, paroxysmal noc. dyspnea, edema, light headedness Gastrointestinal: denies: nausea, vomiting, abdominal pain, diarrhea, constipation, melena, hematochezia - Medication Medications: Active Medications Generic Name Dose Route Start Last Admin Trade Name Freq PRN Reason Stop Dose Admin Hydrocodone Bitart/Acetaminophen 2 tab 03/12/20 20:53 03/15/20 08:05 Hydrocodone/Acetaminophen 5/325 Mg Tablet PO 2 tab Q4H PRN Administration Severe Pain (7-10) Alprazolam 0.5 mg 03/13/20 07:47 03/14/20 15:37 Alprazolam 0.5 Mg Tab PO 0.5 mg BID PRN Administration Anxiety Aspirin 81 mg 03/13/20 09:00 03/15/20 09:12 Aspirin 81 Mg Enteric Coated Tablet PO 81 mg DAILY TANESHA Administration Calcium Carbonate 600 mg 03/13/20 17:00 03/14/20 17:44 Calcium Carbonate 600 Mg Tab PO Not Given 1700 TANESHA Chlorhexidine Gluconate 15 ml 03/15/20 09:00 03/15/20 09:14 Chlorhexidine Gluconate 15 Ml Udcup SSP 15 ml BID TANESHA Administration Cyclosporine 0 ml 03/13/20 09:00 03/15/20 09:16 Cyclosporine 0.05% Ophthalmic Droperette EA EYE Not Given BID TANESHA Enoxaparin Sodium 40 mg 03/13/20 09:00 03/15/20 09:14 Enoxaparin Sodium 40 Mg/0.4 Ml Syringe SC 40 mg 0900 TANESHA Administration Ferrous Sulfate 325 mg 03/13/20 09:00 03/15/20 09:19 Ferrous Sulfate 325 Mg Tab PO 325 mg Q2D TANESHA Administration Fish Oil 1,000 mg 03/13/20 17:00 03/14/20 17:44 Fish Oil 1,000 Mg Cap PO Not Given 1700 TANESHA Folic Acid 1 mg 03/13/20 09:00 03/15/20 09:12 Folic Acid 1 Mg Tab PO 1 mg DAILY TANESHA Administration Furosemide 20 mg 03/13/20 09:00 03/15/20 09:13 Furosemide 20 Mg Tab PO 20 mg DAILY TANESHA Administration Hydroxychloroquine Sulfate 200 mg 03/13/20 09:00 03/15/20 09:13 Hydroxychloroquine Sulfate 200 Mg Tab PO 200 mg DAILY TANESHA Administration Sodium Chloride 1,000 mls @ 40 mls/hr 03/12/20 21:00 03/14/20 21:24 Normal Saline 0.9% IV Not Given .Q24H TANESHA Meropenem 1 gm/ Device 50 mls @ 100 mls/hr 03/14/20 17:00 03/15/20 09:16 IVPB 50 mls 0100,0900,1700 TANESHA Administration Iron/Minerals/Multivitamins 1 tab 03/13/20 09:00 03/15/20 09:19 Multivitamin W/ Minerals 1 Tab PO 1 tab Q2D TANESHA Administration Levothyroxine Sodium 50 mcg 03/13/20 09:00 03/15/20 09:12 Levothyroxine Sodium 50 Mcg Tab PO 50 mcg DAILY TANESHA Administration Methotrexate Sodium 2.5 mg 03/13/20 09:00 03/13/20 09:00 Methotrexate Sodium 2.5 Mg Tab PO Not Given Q7D TANESHA Saccharomyces Boulardii 250 mg 03/13/20 09:00 03/15/20 09:12 Saccharomyces Boulardii 250 Mg Cap PO 250 mg DAILY TANESHA Administration Sodium Chloride 1 gm 03/13/20 09:00 03/15/20 09:12 Sodium Chloride 1 Gm Tab PO 1 gm DAILY TANESHA Administration Sodium Chloride 10 ml 03/13/20 09:00 03/15/20 09:15 Flush - Normal Saline 10 Ml Syringe IVF 10 ml Q12HR TANESHA Administration - Exam General Appearance: awake alert Eye: anicteric sclera ENT: moist mucosa Neck: supple Heart: RRR Respiratory: CTAB Gastrointestinal: soft, non-tender Skin: no rashes Neurological: cranial nerve grossly intact Musculoskeletal: no muscle wasting Psychiatric: normal affect, normal behavior Hosp A/P - Plan -Assessment (1) Mandibular abscess Code(s): M27.2 - INFLAMMATORY CONDITIONS OF JAWS Status: Acute (2) Chronic hyponatremia Code(s): E87.1 - HYPO-OSMOLALITY AND HYPONATREMIA Status: Chronic (3) CREST syndrome Code(s): M34.1 - CR(E)ST SYNDROME Status: Chronic (4) Pulmonary hypertension Code(s): I27.20 - PULMONARY HYPERTENSION, UNSPECIFIED Status: Chronic - Plan Status post incision and drainage on March 14, 2020. Continue IV meropenem, follow cultures and adjust antibiotics as needed. OMFS/ID service is following.
[2020-03-15] MEDS: Fish Oil 1,000 MG CAP PO SCH (16:56)
[2020-03-15] MEDS: Calcium Carbonate 600 MG TAB PO SCH (16:56)
[2020-03-15] MEDS: Sodium Chloride 0.9% 1,000 ML IV SCH (16:57)
[2020-03-15] MEDS: Senokot S 8.6-50 MG TAB PO PRN (18:55)
[2020-03-16] MEDS: MEROPENEM 1 GM/50 ML 1 GM in Premix Bag 1 BAG IVPB SCH ×3 (00:46→17:15)
[2020-03-16] MEDS: Furosemide 20 MG TAB PO SCH (09:09)
[2020-03-16] MEDS: Levothyroxine Sodium 50 MCG TAB PO SCH (09:09)
[2020-03-16] MEDS: Folic Acid 1 MG TAB PO SCH (09:09)
[2020-03-16] MEDS: Hydroxychloroquine Sulfate 200 MG TAB PO SCH (09:09)
[2020-03-16] MEDS: Sodium Chloride 1 GM TAB PO SCH (09:09)
[2020-03-16] MEDS: Enoxaparin Sodium 40 MG/0.4 ML SYRINGE SC SCH (09:09)
[2020-03-16] MEDS: Saccharomyces boulardii 250 MG CAP PO SCH (09:09)
[2020-03-16] MEDS: Aspirin 81 mg Enteric Coated Tablet PO SCH (09:09)
[2020-03-16] MEDS: Chlorhexidine Gluconate 15 ML UDCUP SSP SCH ×2 (09:10→20:19)
[2020-03-16] MEDS: cycloSPORINE 0.05% Ophthalmic Droperette EA EYE SCH ×2 (09:10→20:05)
[2020-03-16] MEDS: Senokot S 8.6-50 MG TAB PO PRN (09:13)
--- NOTE | 2020-03-16 14:13 | PDOC.HOSPP ---
- Subjective Encounter Date: 03/16/20 Encounter Time: 07:00 Subjective: Patient seen for follow-up for mandibular abscess. She reports feeling better. She denies any chest pain or shortness of breath. Appetite is good. - Objective Vital Signs & Weight: Vital Signs (12 hours) Temp Pulse Resp BP Pulse Ox 03/16/20 08:00 98.4 F 74 18 130/60 97 Weight Weight 107 lb I&O: 03/15/20 03/16/20 03/17/20 06:59 06:59 06:59 Intake Total 420 2340 340 Balance 420 2340 340 Result Diagrams: 03/14/20 03:22 03/14/20 03:22 Additional Labs: I reviewed patient's labs and MAR Hospitalist ROS - Review of Systems Cardiovascular: denies: chest pain, palpitations, orthopnea, paroxysmal noc. dyspnea, edema, light headedness Skin: denies: rash, lesions, amber, bruising - Medication Medications: Active Medications Generic Name Dose Route Start Last Admin Trade Name Freq PRN Reason Stop Dose Admin Hydrocodone Bitart/Acetaminophen 2 tab 03/12/20 20:53 03/15/20 23:22 Hydrocodone/Acetaminophen 5/325 Mg Tablet PO 2 tab Q4H PRN Administration Severe Pain (7-10) Alprazolam 0.5 mg 03/13/20 07:47 03/14/20 15:37 Alprazolam 0.5 Mg Tab PO 0.5 mg BID PRN Administration Anxiety Aspirin 81 mg 03/13/20 09:00 03/16/20 09:09 Aspirin 81 Mg Enteric Coated Tablet PO 81 mg DAILY TANESHA Administration Calcium Carbonate 600 mg 03/13/20 17:00 03/15/20 16:56 Calcium Carbonate 600 Mg Tab PO 600 mg 1700 TANESHA Administration Chlorhexidine Gluconate 15 ml 03/15/20 09:00 03/16/20 09:10 Chlorhexidine Gluconate 15 Ml Udcup SSP 15 ml BID TANESHA Administration Cyclosporine 0 ml 03/13/20 09:00 03/16/20 09:10 Cyclosporine 0.05% Ophthalmic Droperette EA EYE Not Given BID TANESHA Enoxaparin Sodium 40 mg 03/13/20 09:00 03/16/20 09:09 Enoxaparin Sodium 40 Mg/0.4 Ml Syringe SC 40 mg 0900 TANESHA Administration Ferrous Sulfate 325 mg 03/13/20 09:00 03/15/20 09:19 Ferrous Sulfate 325 Mg Tab PO 325 mg Q2D TANESHA Administration Fish Oil 1,000 mg 03/13/20 17:00 03/15/20 16:56 Fish Oil 1,000 Mg Cap PO 1,000 mg 1700 TANESHA Administration Folic Acid 1 mg 03/13/20 09:00 03/16/20 09:09 Folic Acid 1 Mg Tab PO 1 mg DAILY TANESHA Administration Furosemide 20 mg 03/13/20 09:00 03/16/20 09:09 Furosemide 20 Mg Tab PO 20 mg DAILY TANESHA Administration Hydroxychloroquine Sulfate 200 mg 03/13/20 09:00 03/16/20 09:09 Hydroxychloroquine Sulfate 200 Mg Tab PO 200 mg DAILY TANESHA Administration Sodium Chloride 1,000 mls @ 40 mls/hr 03/12/20 21:00 03/15/20 16:57 Normal Saline 0.9% IV 1,000 mls .Q24H TANESHA Administration Meropenem 1 gm/ Device 50 mls @ 100 mls/hr 03/14/20 17:00 03/16/20 09:10 IVPB 50 mls 0100,0900,1700 TANESHA Administration Iron/Minerals/Multivitamins 1 tab 03/13/20 09:00 03/15/20 09:19 Multivitamin W/ Minerals 1 Tab PO 1 tab Q2D TANESHA Administration Levothyroxine Sodium 50 mcg 03/13/20 09:00 03/16/20 09:09 Levothyroxine Sodium 50 Mcg Tab PO 50 mcg DAILY TANESHA Administration Methotrexate Sodium 2.5 mg 03/13/20 09:00 03/13/20 09:00 Methotrexate Sodium 2.5 Mg Tab PO Not Given Q7D [facility] Saccharomyces Boulardii 250 mg 03/13/20 09:00 03/16/20 09:09 Saccharomyces Boulardii 250 Mg Cap PO 250 mg DAILY TANESHA Administration Senna/Docusate Sodium 2 tab 03/13/20 07:49 03/16/20 09:13 Senokot S 8.6-50 Mg Tab PO 2 tab BID PRN Administration Constipation Sodium Chloride 1 gm 03/13/20 09:00 03/16/20 09:09 Sodium Chloride 1 Gm Tab PO 1 gm DAILY TANESHA Administration Sodium Chloride 10 ml 03/13/20 09:00 03/16/20 09:11 Flush - Normal Saline 10 Ml Syringe IVF 10 ml Q12HR TANESHA Administration Sodium Chloride 10 ml 03/13/20 08:15 03/15/20 16:58 Flush - Normal Saline 10 Ml Syringe IVF 10 ml PRN PRN Administration Saline Flush - Exam General Appearance: NAD Eye: anicteric sclera ENT: moist mucosa Neck: supple Heart: RRR Respiratory: CTAB Gastrointestinal: soft, non-tender Skin: no rashes Musculoskeletal: no muscle wasting Psychiatric: normal affect, normal behavior Hosp A/P - Plan -Assessment (1) Mandibular abscess Code(s): M27.2 - INFLAMMATORY CONDITIONS OF JAWS Status: Acute (2) CREST syndrome Code(s): M34.1 - CR(E)ST SYNDROME Status: Chronic (3) Chronic hyponatremia Code(s): E87.1 - HYPO-OSMOLALITY AND HYPONATREMIA Status: Chronic (4) Pulmonary hypertension Code(s): I27.20 - PULMONARY HYPERTENSION, UNSPECIFIED Status: Chronic - Plan Status post incision and drainage on March 14, 2020. Patient is on intravenous meropenem. Cultures pending. OMFS/ID service is following.
[2020-03-16] MEDS: Fish Oil 1,000 MG CAP PO SCH (17:17)
[2020-03-16] MEDS: Calcium Carbonate 600 MG TAB PO SCH (17:17)
[2020-03-16] MEDS: Sodium Chloride 0.9% 1,000 ML IV SCH (20:19)
[2020-03-16] MEDS: HYDROcodone/Acetaminophen 5/325 mg Tablet PO PRN (20:19)
[2020-03-17] MEDS: MEROPENEM 1 GM/50 ML 1 GM in Premix Bag 1 BAG IVPB SCH ×3 (00:25→17:25)
[2020-03-17] MEDS: Chlorhexidine Gluconate 15 ML UDCUP SSP SCH ×2 (09:25→19:59)
[2020-03-17] MEDS: Enoxaparin Sodium 40 MG/0.4 ML SYRINGE SC SCH (09:25)
[2020-03-17] MEDS: Ferrous Sulfate 325 MG TAB PO SCH (09:25)
[2020-03-17] MEDS: Saccharomyces boulardii 250 MG CAP PO SCH (09:25)
[2020-03-17] MEDS: Folic Acid 1 MG TAB PO SCH (09:25)
[2020-03-17] MEDS: Furosemide 20 MG TAB PO SCH (09:25)
[2020-03-17] MEDS: Levothyroxine Sodium 50 MCG TAB PO SCH (09:25)
[2020-03-17] MEDS: Aspirin 81 mg Enteric Coated Tablet PO SCH (09:25)
[2020-03-17] MEDS: Sodium Chloride 1 GM TAB PO SCH (09:25)
[2020-03-17] MEDS: cycloSPORINE 0.05% Ophthalmic Droperette EA EYE SCH ×3 (09:26→19:56)
[2020-03-17] MEDS: Hydroxychloroquine Sulfate 200 MG TAB PO SCH (09:26)
[2020-03-17] MEDS: Multivitamin W/ Minerals 1 TAB PO SCH (09:26)
[2020-03-17] MEDS: HYDROcodone/Acetaminophen 5/325 mg Tablet PO PRN (13:59)
[2020-03-17] MEDS: Tadalafil [Adcirca] 20 MG PO SCH ×5 (14:29→20:01)
[2020-03-17] MEDS: Macitentan [Opsumit] 10 MG PO SCH ×5 (14:30→20:01)
--- NOTE | 2020-03-17 16:00 | PDOC.HOSPP ---
- Subjective Encounter Date: 03/17/20 Encounter Time: 07:00 Subjective: Patient seen for follow-up regarding mandibular abscess. She reports feeling better. - Objective Vital Signs & Weight: Vital Signs (12 hours) Temp Pulse Resp BP Pulse Ox 03/17/20 07:40 98.5 F 71 16 141/65 H 99 Weight Weight 107 lb I&O: 03/16/20 03/17/20 03/18/20 06:59 06:59 06:59 Intake Total 2340 1880 Balance 2340 1880 Result Diagrams: 03/14/20 03:22 03/14/20 03:22 Additional Labs: Labs and MAR reviewed by nm Hospitalist ROS - Review of Systems Cardiovascular: denies: chest pain, palpitations, orthopnea, paroxysmal noc. dyspnea, edema, light headedness Gastrointestinal: denies: nausea, vomiting, constipation, melena, hematochezia - Medication Medications: Active Medications Generic Name Dose Route Start Last Admin Trade Name Freq PRN Reason Stop Dose Admin Hydrocodone Bitart/Acetaminophen 2 tab 03/12/20 20:53 03/17/20 13:59 Hydrocodone/Acetaminophen 5/325 Mg Tablet PO 2 tab Q4H PRN Administration Severe Pain (7-10) Alprazolam 0.5 mg 03/13/20 07:47 03/14/20 15:37 Alprazolam 0.5 Mg Tab PO 0.5 mg BID PRN Administration Anxiety Aspirin 81 mg 03/13/20 09:00 03/17/20 09:25 Aspirin 81 Mg Enteric Coated Tablet PO 81 mg DAILY TANESHA Administration Calcium Carbonate 600 mg 03/13/20 17:00 03/16/20 17:17 Calcium Carbonate 600 Mg Tab PO 600 mg 1700 TANESHA Administration Chlorhexidine Gluconate 15 ml 03/15/20 09:00 03/17/20 09:25 Chlorhexidine Gluconate 15 Ml Udcup SSP 15 ml BID TANESHA Administration Cyclosporine 0 ml 03/13/20 09:00 03/17/20 09:31 Cyclosporine 0.05% Ophthalmic Droperette EA EYE Not Given BID TANESHA Enoxaparin Sodium 40 mg 03/13/20 09:00 03/17/20 09:25 Enoxaparin Sodium 40 Mg/0.4 Ml Syringe SC 40 mg 0900 TANEHSA Administration Ferrous Sulfate 325 mg 03/13/20 09:00 03/17/20 09:25 Ferrous Sulfate 325 Mg Tab PO 325 mg Q2D TANESHA Administration Fish Oil 1,000 mg 03/13/20 17:00 03/16/20 17:17 Fish Oil 1,000 Mg Cap PO 1,000 mg 1700 TANESHA Administration Folic Acid 1 mg 03/13/20 09:00 03/17/20 09:25 Folic Acid 1 Mg Tab PO 1 mg DAILY TANESHA Administration Furosemide 20 mg 03/13/20 09:00 03/17/20 09:25 Furosemide 20 Mg Tab PO 20 mg DAILY TANESHA Administration Hydroxychloroquine Sulfate 200 mg 03/13/20 09:00 03/17/20 09:26 Hydroxychloroquine Sulfate 200 Mg Tab PO 200 mg DAILY TANESHA Administration Sodium Chloride 1,000 mls @ 40 mls/hr 03/12/20 21:00 03/16/20 20:19 Normal Saline 0.9% IV 1,000 mls .Q24H TANESHA Administration Meropenem 1 gm/ Device 50 mls @ 100 mls/hr 03/14/20 17:00 03/17/20 09:26 IVPB 50 mls 0100,0900,1700 TANESHA Administration Iron/Minerals/Multivitamins 1 tab 03/13/20 09:00 03/17/20 09:26 Multivitamin W/ Minerals 1 Tab PO 1 tab Q2D TANESHA Administration Levothyroxine Sodium 50 mcg 03/13/20 09:00 03/17/20 09:25 Levothyroxine Sodium 50 Mcg Tab PO 50 mcg DAILY TANESHA Administration Methotrexate Sodium 2.5 mg 03/13/20 09:00 03/13/20 09:00 Methotrexate Sodium 2.5 Mg Tab PO Not Given Q7D TANESHA Macitentan [Opsumit] 0 each 03/13/20 21:00 03/17/20 14:36 10 Mg PO Not Given HS TANESHA Tadalafil [Adcirca] 0 each 03/13/20 17:00 03/17/20 14:35 20 Mg PO Not Given QPM-WM TANESHA Saccharomyces Boulardii 250 mg 03/13/20 09:00 03/17/20 09:25 Saccharomyces Boulardii 250 Mg Cap PO 250 mg DAILY TANESHA Administration Senna/Docusate Sodium 2 tab 03/13/20 07:49 03/16/20 09:13 Senokot S 8.6-50 Mg Tab PO 2 tab BID PRN Administration Constipation Sodium Chloride 1 gm 03/13/20 09:00 03/17/20 09:25 Sodium Chloride 1 Gm Tab PO 1 gm DAILY TANESHA Administration Sodium Chloride 10 ml 03/13/20 09:00 03/17/20 09:26 Flush - Normal Saline 10 Ml Syringe IVF 10 ml Q12HR TANESHA Administration Sodium Chloride 10 ml 03/13/20 08:15 03/15/20 16:58 Flush - Normal Saline 10 Ml Syringe IVF 10 ml PRN PRN Administration Saline Flush - Exam General Appearance: awake alert ENT: normocephalic atraumatic Heart: RRR Respiratory: CTAB Gastrointestinal: non-tender, normal bowel sounds Skin: no rashes Psychiatric: normal affect, normal behavior Hosp A/P - Plan -Assessment (1) Mandibular abscess Code(s): M27.2 - INFLAMMATORY CONDITIONS OF JAWS Status: Acute (2) CREST syndrome Code(s): M34.1 - CR(E)ST SYNDROME Status: Chronic (3) Chronic hyponatremia Code(s): E87.1 - HYPO-OSMOLALITY AND HYPONATREMIA Status: Chronic (4) Pulmonary hypertension Code(s): I27.20 - PULMONARY HYPERTENSION, UNSPECIFIED Status: Chronic - Plan Status post I&D, continue IV meropenem. Urine culture is growing presumptive E coli. Mandibular abscess is growing St reptococcus anginosus group. Infectious diseases service and oral maxillofacial surgery service are following. Likely home in 24 to 48 hours.
[2020-03-17] MEDS: Fish Oil 1,000 MG CAP PO SCH (17:24)
[2020-03-17] MEDS: Calcium Carbonate 600 MG TAB PO SCH (17:25)
[2020-03-18] MEDS: Sodium Chloride 0.9% 1,000 ML IV SCH ×2 (00:24→20:35)
[2020-03-18] MEDS: MEROPENEM 1 GM/50 ML 1 GM in Premix Bag 1 BAG IVPB SCH ×2 (00:24→08:08)
[2020-03-18] MEDS: HYDROcodone/Acetaminophen 5/325 mg Tablet PO PRN ×2 (00:26→20:31)
[2020-03-18] MEDS: Folic Acid 1 MG TAB PO SCH (08:03)
[2020-03-18] MEDS: Furosemide 20 MG TAB PO SCH (08:03)
[2020-03-18] MEDS: Hydroxychloroquine Sulfate 200 MG TAB PO SCH (08:03)
[2020-03-18] MEDS: Aspirin 81 mg Enteric Coated Tablet PO SCH (08:03)
[2020-03-18] MEDS: Saccharomyces boulardii 250 MG CAP PO SCH (08:04)
[2020-03-18] MEDS: Enoxaparin Sodium 40 MG/0.4 ML SYRINGE SC SCH ×2 (08:04→08:06)
[2020-03-18] MEDS: Sodium Chloride 1 GM TAB PO SCH (08:04)
[2020-03-18] MEDS: Levothyroxine Sodium 50 MCG TAB PO SCH (08:04)
[2020-03-18] MEDS: Chlorhexidine Gluconate 15 ML UDCUP SSP SCH ×2 (08:05→20:32)
[2020-03-18] MEDS: cycloSPORINE 0.05% Ophthalmic Droperette EA EYE SCH ×2 (08:06→21:41)
[2020-03-18 14:22] LABS: #Eosinphils 0.1 thou/uL (0.0-0.7); #Lymphocytes 0.9 thou/uL (1.20-3.40); #Monocytes 0.5 thou/uL (0.11-0.59); #Neutrophils 2.4 thou/uL (1.40-6.50); %Basophils 0.6 % (0.0-1.0); %Eosinophils 3.7 % (0.0-10.0); %Lymphocytes 22.7 % (21.0-51.0); %Monocytes 12.9 % (0.0-10.0); %Neutrophils 60.2 % (42.0-75.0); Hemoglobin 9.5 g/dL (12.0-16.0); Mean Corpuscular HGB CONC 33.6 g/dL (32.0-36.0); Mean Corpuscular Hemoglobin 33.2 pg (27.0-31.0); Mean Corpuscular Volume 98.9 fL (78.0-98.0); Mean Platelet Volume 5.5 fL (7.4-10.4); Platelet Count 201 thou/uL (130-400); RBC Distribution Width 13.4 % (11.5-14.5); Red Blood Cell (RBC) Count 2.85 mill/uL (4.20-5.40)
[2020-03-18 14:33] LABS: Anion Gap 11 mmol/L (10-20); BUN (Urea Nitrogen) 4 mg/dL (9.8-20.1); Calc. Creatinine Clearance 69 mL/min (70-130); Calcium 8.4 mg/dL (7.8-10.44); Carbon Dioxide 30 mmol/L (23-31); Chloride 96 mmol/L (98-107); Estimated GFR-MDRD Greater than 90; Glucose 91 mg/dL (80-115); Potassium 3.8 mmol/L (3.5-5.1); Sodium 133 mmol/L (136-145)
--- NOTE | 2020-03-18 15:25 | PDOC.HOSPP ---
- Subjective Encounter Date: 03/18/20 Encounter Time: 15:23 Subjective: Patient seen for follow-up for mandibular abscess. She reports that she slept well. She reports feeling better. - Objective Vital Signs & Weight: Vital Signs (12 hours) Temp Pulse Resp BP Pulse Ox 03/18/20 07:28 98.0 F 69 14 142/65 H 98 Weight Weight 107 lb I&O: 03/17/20 03/18/20 03/19/20 06:59 06:59 06:59 Intake Total 1880 1610 Balance 1880 1610 Result Diagrams: 03/18/20 14:01 03/18/20 14:01 Additional Labs: Labs and MAR reviewed by or Hospitalist ROS - Review of Systems Constitutional: denies: fever, chills, sweats, weakness, malaise ENT: denies: ear pain, nose pain, nose congestion, mouth pain, mouth swelling, throat pain, throat swelling - Medication Medications: Active Medications Generic Name Dose Route Start Last Admin Trade Name Freq PRN Reason Stop Dose Admin Hydrocodone Bitart/Acetaminophen 2 tab 03/12/20 20:53 03/18/20 00:26 Hydrocodone/Acetaminophen 5/325 Mg Tablet PO 2 tab Q4H PRN Administration Severe Pain (7-10) Alprazolam 0.5 mg 03/13/20 07:47 03/14/20 15:37 Alprazolam 0.5 Mg Tab PO 0.5 mg BID PRN Administration Anxiety Aspirin 81 mg 03/13/20 09:00 03/18/20 08:03 Aspirin 81 Mg Enteric Coated Tablet PO 81 mg DAILY TANESHA Administration Calcium Carbonate 600 mg 03/13/20 17:00 03/17/20 17:25 Calcium Carbonate 600 Mg Tab PO 600 mg 1700 TANESHA Administration Chlorhexidine Gluconate 15 ml 03/15/20 09:00 03/18/20 08:05 Chlorhexidine Gluconate 15 Ml Udcup SSP 15 ml BID TANESHA Administration Cyclosporine 0 ml 03/13/20 09:00 03/18/20 08:06 Cyclosporine 0.05% Ophthalmic Droperette EA EYE Not Given BID TANESHA Enoxaparin Sodium 40 mg 03/13/20 09:00 03/18/20 08:06 Enoxaparin Sodium 40 Mg/0.4 Ml Syringe SC 40 mg 0900 TANESHA Administration Ferrous Sulfate 325 mg 03/13/20 09:00 03/17/20 09:25 Ferrous Sulfate 325 Mg Tab PO 325 mg Q2D TANESHA Administration Fish Oil 1,000 mg 03/13/20 17:00 03/17/20 17:24 Fish Oil 1,000 Mg Cap PO 1,000 mg 1700 TANESHA Administration Folic Acid 1 mg 03/13/20 09:00 03/18/20 08:03 Folic Acid 1 Mg Tab PO 1 mg DAILY TANESHA Administration Furosemide 20 mg 03/13/20 09:00 03/18/20 08:03 Furosemide 20 Mg Tab PO 20 mg DAILY TANESHA Administration Hydroxychloroquine Sulfate 200 mg 03/13/20 09:00 03/18/20 08:03 Hydroxychloroquine Sulfate 200 Mg Tab PO 200 mg DAILY TANESHA Administration Sodium Chloride 1,000 mls @ 40 mls/hr 03/12/20 21:00 03/18/20 00:24 Normal Saline 0.9% IV 1,000 mls .Q24H TANESHA Administration Meropenem 1 gm/ Device 50 mls @ 100 mls/hr 03/14/20 17:00 03/18/20 08:08 IVPB 50 mls 0100,0900,1700 TANESHA Administration Iron/Minerals/Multivitamins 1 tab 03/13/20 09:00 03/17/20 09:26 Multivitamin W/ Minerals 1 Tab PO 1 tab Q2D TANESHA Administration Levothyroxine Sodium 50 mcg 03/13/20 09:00 03/18/20 08:04 Levothyroxine Sodium 50 Mcg Tab PO 50 mcg DAILY TANESHA Administration Methotrexate Sodium 2.5 mg 03/13/20 09:00 03/13/20 09:00 Methotrexate Sodium 2.5 Mg Tab PO Not Given Q7D TANESHA Macitentan [Opsumit] 0 each 03/13/20 21:00 03/17/20 20:01 10 Mg PO 1 each HS TANESHA Administration Tadalafil [Adcirca] 0 each 03/13/20 17:00 03/17/20 20:01 20 Mg PO 1 each QPM-WM TANESHA Administration Saccharomyces Boulardii 250 mg 03/13/20 09:00 03/18/20 08:04 Saccharomyces Boulardii 250 Mg Cap PO 250 mg DAILY TANESHA Administration Senna/Docusate Sodium 2 tab 03/13/20 07:49 03/16/20 09:13 Senokot S 8.6-50 Mg Tab PO 2 tab BID PRN Administration Constipation Sodium Chloride 1 gm 03/13/20 09:00 03/18/20 08:04 Sodium Chloride 1 Gm Tab PO 1 gm DAILY TANESHA Administration Sodium Chloride 10 ml 03/13/20 09:00 03/18/20 08:08 Flush - Normal Saline 10 Ml Syringe IVF Not Given Q12HR TANESHA Sodium Chloride 10 ml 03/13/20 08:15 03/15/20 16:58 Flush - Normal Saline 10 Ml Syringe IVF 10 ml PRN PRN Administration Saline Flush - Exam General Appearance: awake alert Eye: anicteric sclera ENT: normocephalic atraumatic Neck: supple Heart: RRR Respiratory: CTAB Gastrointestinal: soft, non-tender Extremities: no edema Skin: no rashes Psychiatric: normal affect Hosp A/P - Plan -Assessment (1) Mandibular abscess Code(s): M27.2 - INFLAMMATORY CONDITIONS OF JAWS Status: Acute (2) CREST syndrome Code(s): M34.1 - CR(E)ST SYNDROME Status: Chronic (3) Chronic hyponatremia Code(s): E87.1 - HYPO-OSMOLALITY AND HYPONATREMIA Status: Chronic (4) Pulmonary hypertension Code(s): I27.20 - PULMONARY HYPERTENSION, UNSPECIFIED Status: Chronic - Plan Discussed with infectious disease service. Patient will need PICC line for meropenem. Urine culture is growing presumptive E coli and mandibular abscess is growing Streptococcus anginosus group. Home once PICC line is inserted and outpatient antibiotics are arranged.
--- NOTE | 2020-03-18 16:27 | PRG ---
DATE OF SERVICE: 03/18/2020 SUBJECTIVE: Ms. Guthrie is feeling better. Less pain. Less swelling. No respiratory symptoms or abdominal pain. Voiding in the toilet. Eating with some limitations. OBJECTIVE: VITAL SIGNS: Temperature is normal. Other vital signs are normal O2 saturations of 98 on 1-1/2 L nasal cannula. GENERAL: Appears in no distress. Swelling has diminished significantly. LUNGS: Clear. HEART: S1 and S2, regular rate. ABDOMEN: Soft. Not distended or tender. No ascites. No bladder distention. LABORATORY DATA: White cell count 4.0, hemoglobin 9.5, platelets 201 with normal differential except for slight monocytosis. Creatinine 0.58. Microbiology with Strep anginosus from the mandible abscess. Surgical report from the operative procedure by Dr. Lantigua on the was reviewed. Local anesthetic was delivered with mental nerve blocks and a 15-blade was used to make a vestibular incision to the anterior right mandibular region labially. Labial vestibule was opened, and a small amount of purulent discharge encountered. Swab was taken. Vestibule was opened extending down to the inferior border region, all purulent sanguinous-type discharge, decompressed, area irrigated copiously. Oral cavity suctioned free and she was released from sedation. ASSESSMENT AND DISCUSSION: Pulmonary hypertension; scleroderma; CREST syndrome, on various treatments; dental extraction and submandibular inflammatory process with vestibular abscess, status post debridement. The patient is Strep anginosus, but typically those lesions are polymicrobial. We will continue meropenem for now. She will probably require long-term treatment with IV antimicrobial therapy, PICC line placement. Job ID: [id number]
[2020-03-18] MEDS: Calcium Carbonate 600 MG TAB PO SCH (17:15)
[2020-03-18] MEDS: Meropenem 1 GM in Sodium Chloride 0.9% 100 ML IVPB SCH (17:15)
[2020-03-18] MEDS: Fish Oil 1,000 MG CAP PO SCH (17:15)
[2020-03-18] MEDS: Macitentan [Opsumit] 10 MG PO SCH (20:32)
[2020-03-19] MEDS: Meropenem 1 GM in Sodium Chloride 0.9% 100 ML IVPB SCH ×3 (01:49→17:27)
[2020-03-19] MEDS: HYDROcodone/Acetaminophen 5/325 mg Tablet PO PRN ×2 (05:21→14:10)
[2020-03-19 07:09] LABS: Anion Gap 10 mmol/L (10-20); BUN (Urea Nitrogen) 6 mg/dL (9.8-20.1); Calc. Creatinine Clearance 72 mL/min (70-130); Calcium 8.2 mg/dL (7.8-10.44); Carbon Dioxide 28 mmol/L (23-31); Chloride 99 mmol/L (98-107); Estimated GFR-MDRD Greater than 90; Glucose 75 mg/dL (80-115); Potassium 3.8 mmol/L (3.5-5.1); Sodium 133 mmol/L (136-145)
[2020-03-19 07:46] LABS: Hemoglobin 8.8 g/dL (12.0-16.0); Mean Corpuscular HGB CONC 33.7 g/dL (32.0-36.0); Mean Corpuscular Hemoglobin 33.4 pg (27.0-31.0); Mean Corpuscular Volume 99.1 fL (78.0-98.0); Mean Platelet Volume 5.6 fL (7.4-10.4); Platelet Count 217 thou/uL (130-400); RBC Distribution Width 13.4 % (11.5-14.5); Red Blood Cell (RBC) Count 2.62 mill/uL (4.20-5.40); White Blood Cell (WBC) Count 3.3 thou/uL (4.8-10.8)
[2020-03-19 08:28] LABS: Band 2 % (5-11); Eosinophils 2 % (0-10); Hypersemented Neutrophil SLIGHT; Lymphocytes 19 % (21-51); MDiff Complete? YES; Monocytes 18 % (0-10); Neutrophil 54 % (42-75); Platelet Morphology Comment Appears Adequate; Reactive Lymphocytes 5 % (0-10)
[2020-03-19] MEDS: Sodium Chloride 1 GM TAB PO SCH (08:49)
[2020-03-19] MEDS: Furosemide 20 MG TAB PO SCH (08:49)
[2020-03-19] MEDS: Chlorhexidine Gluconate 15 ML UDCUP SSP SCH ×2 (08:49→20:18)
[2020-03-19] MEDS: Levothyroxine Sodium 50 MCG TAB PO SCH (08:49)
[2020-03-19] MEDS: Hydroxychloroquine Sulfate 200 MG TAB PO SCH (08:49)
[2020-03-19] MEDS: Aspirin 81 mg Enteric Coated Tablet PO SCH (08:49)
[2020-03-19] MEDS: Folic Acid 1 MG TAB PO SCH (08:49)
[2020-03-19] MEDS: Saccharomyces boulardii 250 MG CAP PO SCH (08:49)
[2020-03-19] MEDS: Multivitamin W/ Minerals 1 TAB PO SCH (08:51)
[2020-03-19] MEDS: Enoxaparin Sodium 40 MG/0.4 ML SYRINGE SC SCH (08:51)
[2020-03-19] MEDS: Ferrous Sulfate 325 MG TAB PO SCH (08:51)
[2020-03-19] MEDS: cycloSPORINE 0.05% Ophthalmic Droperette EA EYE SCH ×2 (08:53→19:38)
--- NOTE | 2020-03-19 15:34 | PDOC.HOSPP ---
- Subjective Encounter Date: 03/19/20 Encounter Time: 07:00 Subjective: Patient seen for follow-up regarding mandibular abscess. She denies any chest pain, shortness of breath, fevers or chills. Sleeping well. - Objective Vital Signs & Weight: Vital Signs (12 hours) Temp Pulse Resp BP Pulse Ox 03/19/20 08:00 98.1 F 65 16 145/67 H 99 Weight Weight 107 lb I&O: 03/18/20 03/19/20 03/20/20 06:59 06:59 06:59 Intake Total 1610 890 Balance 1610 890 Result Diagrams: 03/19/20 06:20 03/19/20 06:20 Additional Labs: I reviewed patient's labs and [facility] Hospitalist ROS - Review of Systems Constitutional: denies: fever, chills, sweats Cardiovascular: denies: chest pain, palpitations, orthopnea, paroxysmal noc. dyspnea, edema, light headedness Musculoskeletal: denies: neck pain, shoulder pain, arm pain, back pain, hand pain, leg pain, foot pain - Medication Medications: Active Medications Generic Name Dose Route Start Last Admin Trade Name Freq PRN Reason Stop Dose Admin Hydrocodone Bitart/Acetaminophen 2 tab 03/12/20 20:53 03/19/20 14:10 Hydrocodone/Acetaminophen 5/325 Mg Tablet PO 2 tab Q4H PRN Administration Severe Pain (7-10) Hydrocodone Bitart/Acetaminophen 1 tab 03/12/20 20:53 03/19/20 05:21 Hydrocodone/Acetaminophen 5/325 Mg Tablet PO 1 tab Q4H PRN Administration Moderate Pain (4-6) Alprazolam 0.5 mg 03/13/20 07:47 03/14/20 15:37 Alprazolam 0.5 Mg Tab PO 0.5 mg BID PRN Administration Anxiety Aspirin 81 mg 03/13/20 09:00 03/19/20 08:49 Aspirin 81 Mg Enteric Coated Tablet PO 81 mg DAILY TANESHA Administration Calcium Carbonate 600 mg 03/13/20 17:00 03/18/20 17:15 Calcium Carbonate 600 Mg Tab PO 600 mg 1700 TANESHA Administration Chlorhexidine Gluconate 15 ml 03/15/20 09:00 03/19/20 08:49 Chlorhexidine Gluconate 15 Ml Udcup SSP 15 ml BID TANESHA Administration Cyclosporine 0 ml 03/13/20 09:00 03/19/20 08:53 Cyclosporine 0.05% Ophthalmic Droperette EA EYE Not Given BID [facility] Enoxaparin Sodium 40 mg 03/13/20 09:00 03/19/20 08:51 Enoxaparin Sodium 40 Mg/0.4 Ml Syringe SC 40 mg 0900 TANESHA Administration Ferrous Sulfate 325 mg 03/13/20 09:00 03/19/20 08:51 Ferrous Sulfate 325 Mg Tab PO 325 mg Q2D TANESHA Administration Fish Oil 1,000 mg 03/13/20 17:00 03/18/20 17:15 Fish Oil 1,000 Mg Cap PO 1,000 mg 1700 TANESHA Administration Folic Acid 1 mg 03/13/20 09:00 03/19/20 08:49 Folic Acid 1 Mg Tab PO 1 mg DAILY TANESHA Administration Furosemide 20 mg 03/13/20 09:00 03/19/20 08:49 Furosemide 20 Mg Tab PO 20 mg DAILY TANESHA Administration Hydroxychloroquine Sulfate 200 mg 03/13/20 09:00 03/19/20 08:49 Hydroxychloroquine Sulfate 200 Mg Tab PO 200 mg DAILY TANESHA Administration Sodium Chloride 1,000 mls @ 40 mls/hr 03/12/20 21:00 03/18/20 20:35 Normal Saline 0.9% IV 1,000 mls .Q24H TANESHA Administration Meropenem 1 gm/ Sodium 100 mls @ 200 mls/hr 03/18/20 17:00 03/19/20 10:34 Chloride IVPB 100 mls 0100,0900,1700 TANESHA Administration Iron/Minerals/Multivitamins 1 tab 03/13/20 09:00 03/19/20 08:51 Multivitamin W/ Minerals 1 Tab PO 1 tab Q2D TANESHA Administration Levothyroxine Sodium 50 mcg 03/13/20 09:00 03/19/20 08:49 Levothyroxine Sodium 50 Mcg Tab PO 50 mcg DAILY TANESHA Administration Methotrexate Sodium 2.5 mg 03/13/20 09:00 03/13/20 09:00 Methotrexate Sodium 2.5 Mg Tab PO Not Given Q7D TANESHA Macitentan [Opsumit] 0 each 03/13/20 21:00 03/18/20 20:32 10 Mg PO 1 each HS TANESHA Administration Tadalafil [Adcirca] 0 each 03/13/20 17:00 03/17/20 20:01 20 Mg PO 1 each QPM-WM TANESHA Administration Saccharomyces Boulardii 250 mg 03/13/20 09:00 03/19/20 08:49 Saccharomyces Boulardii 250 Mg Cap PO 250 mg DAILY TANESHA Administration Senna/Docusate Sodium 2 tab 03/13/20 07:49 03/16/20 09:13 Senokot S 8.6-50 Mg Tab PO 2 tab BID PRN Administration Constipation Sodium Chloride 1 gm 03/13/20 09:00 03/19/20 08:49 Sodium Chloride 1 Gm Tab PO 1 gm DAILY TANESHA Administration Sodium Chloride 10 ml 03/13/20 09:00 03/19/20 08:53 Flush - Normal Saline 10 Ml Syringe IVF Not Given Q12HR TANESHA Sodium Chloride 10 ml 03/13/20 08:15 03/15/20 16:58 Flush - Normal Saline 10 Ml Syringe IVF 10 ml PRN PRN Administration Saline Flush - Exam General Appearance: awake alert Eye: PERRL, anicteric sclera ENT: normocephalic atraumatic Heart: RRR Respiratory: CTAB Gastrointestinal: soft, no palpable masses Psychiatric: normal affect, normal behavior Hosp A/P - Plan -Assessment (1) Mandibular abscess Code(s): M27.2 - INFLAMMATORY CONDITIONS OF JAWS Status: Acute (2) CREST syndrome Code(s): M34.1 - CR(E)ST SYNDROME Status: Chronic (3) Chronic hyponatremia Code(s): E87.1 - HYPO-OSMOLALITY AND HYPONATREMIA Status: Chronic (4) Pulmonary hypertension Code(s): I27.20 - PULMONARY HYPERTENSION, UNSPECIFIED Status: Chronic - Plan Continue IV meropenem. Patient is awaiting PICC line placement. Urine culture is growing presumptive E coli with growth of multiple organisms. Mandibular abscess is growing Streptococcus anginosus group. Home once PICC line is inserted and outpatient antibiotics are arranged.
[2020-03-19] MEDS: Fish Oil 1,000 MG CAP PO SCH (17:27)
[2020-03-19] MEDS: Calcium Carbonate 600 MG TAB PO SCH (17:27)
[2020-03-19] MEDS: Tadalafil [Adcirca] 20 MG PO SCH (17:27)
[2020-03-19] MEDS: Macitentan [Opsumit] 10 MG PO SCH (20:18)
[2020-03-19] MEDS: Sodium Chloride 0.9% 1,000 ML IV SCH (20:21)
[2020-03-20] MEDS: Meropenem 1 GM in Sodium Chloride 0.9% 100 ML IVPB SCH ×2 (00:10→09:27)
[2020-03-20] MEDS: HYDROcodone/Acetaminophen 5/325 mg Tablet PO PRN ×3 (00:19→15:37)
[2020-03-20] MEDS: Sodium Chloride 0.9% 1,000 ML IV SCH (06:13)
[2020-03-20 06:40] LABS: #Eosinphils 0.2 thou/uL (0.0-0.7); #Lymphocytes 1.2 thou/uL (1.20-3.40); #Monocytes 0.5 thou/uL (0.11-0.59); #Neutrophils 1.4 thou/uL (1.40-6.50); %Basophils 0.3 % (0.0-1.0); %Eosinophils 5.6 % (0.0-10.0); %Lymphocytes 36.5 % (21.0-51.0); %Monocytes 14.8 % (0.0-10.0); %Neutrophils 42.9 % (42.0-75.0); Hemoglobin 8.8 g/dL (12.0-16.0); Mean Corpuscular HGB CONC 33.1 g/dL (32.0-36.0); Mean Corpuscular Hemoglobin 32.7 pg (27.0-31.0); Mean Corpuscular Volume 98.9 fL (78.0-98.0); Mean Platelet Volume 5.5 fL (7.4-10.4); Platelet Count 210 thou/uL (130-400); RBC Distribution Width 13.6 % (11.5-14.5); Red Blood Cell (RBC) Count 2.67 mill/uL (4.20-5.40); White Blood Cell (WBC) Count 3.3 thou/uL (4.8-10.8)
[2020-03-20 07:02] LABS: Anion Gap 12 mmol/L (10-20); BUN (Urea Nitrogen) 5 mg/dL (9.8-20.1); Calc. Creatinine Clearance 73 mL/min (70-130); Calcium 8.2 mg/dL (7.8-10.44); Carbon Dioxide 29 mmol/L (23-31); Chloride 97 mmol/L (98-107); Estimated GFR-MDRD Greater than 90; Glucose 72 mg/dL (80-115); Potassium 3.5 mmol/L (3.5-5.1); Sodium 134 mmol/L (136-145)
[2020-03-20 07:56] VITALS: BP 156/70; TEMP 98.5
[2020-03-20] MEDS: Chlorhexidine Gluconate 15 ML UDCUP SSP SCH (08:05)
[2020-03-20] MEDS: Enoxaparin Sodium 40 MG/0.4 ML SYRINGE SC SCH (08:05)
[2020-03-20] MEDS: Hydroxychloroquine Sulfate 200 MG TAB PO SCH (08:08)
[2020-03-20] MEDS: Aspirin 81 mg Enteric Coated Tablet PO SCH (08:08)
[2020-03-20] MEDS: Folic Acid 1 MG TAB PO SCH (08:08)
[2020-03-20] MEDS: Methotrexate Sodium 2.5 MG TAB PO SCH (08:08)
[2020-03-20] MEDS: Levothyroxine Sodium 50 MCG TAB PO SCH (08:09)
[2020-03-20] MEDS: Sodium Chloride 1 GM TAB PO SCH (08:09)
[2020-03-20] MEDS: Saccharomyces boulardii 250 MG CAP PO SCH (08:09)
[2020-03-20] MEDS: Furosemide 20 MG TAB PO SCH (08:09)
[2020-03-20 11:13] LABS: Fungus Stain Final report (.)
[2020-03-20] MEDS: cycloSPORINE 0.05% Ophthalmic Droperette EA EYE SCH (11:50)
--- NOTE | 2020-03-20 11:54 | SPC ---
PICC PLACEMENT ULTRASOUND-GUIDED VENOUS ACCESS: (Peripherally inserted central catheter) DATE: 03/20/2020 HISTORY: 69-year-old female with perimandibular cellulitis and abscess requiring long-term IV antibiotics. TECHNIQUE: Catheter caliber: 5 Icelandic Catheter trim length:42.5 cm Catheter lumen number:single Catheter tip location:superior vena cava Vein accessed:left basilic Total fluoroscopy time: 0.3 min. Dose area product: 749 mGy*cm^2 Signed, informed consent was obtained. A tourniquet was applied at the proximal aspect of the arm. Th e arm was prepped and draped in the usual sterile fashion. A 25-gauge needle was used to applied buffered lidocaine superficially. The vein was punctured with a 21-gauge micropuncture needle under u ltrasound guidance. A 0.018 inch guidewire was advanced through the micropuncture needle and into the vein. Under fluoroscopic guidance, the guidewire was advanced to the superior vena cava. The PICC was flushed and trimmed to the appropriate length. The micropuncture needle was exchanged over the guidewire for a 5 Icelandic peel-away dilator sheath. The dilator was exchanged over the guidewire for t he PICC, which was then further advanced under fluoroscopy. The sheath and guidewire were removed. The PICC was flushed again and secured in place at the arm after adjustment of tip position. The dalia ent tolerated the procedure well. There was no complication. IMPRESSION: Successful placement of PICC (peripherally inserted central catheter).
[2020-03-20] MEDS ORDERED: Macitentan [Opsumit] 10 MG PO SCH (12:00)
[2020-03-20] MEDS: Macitentan [Opsumit] 10 MG PO SCH (13:11)
--- NOTE | 2020-03-20 14:57 | PDOC.DS.DS ---
Provider - Provider Date of Admission: 03/12/20 17:02 Date of Discharge: 03/20/20 Admitting Provider: Marc Stephenson MD Consultations: Infectious Disease (Dr. Piña), Other (Oral surgery: Dr. Lantigua) Primary Care Physician: Matt Moore MD Course - Hospital Course Hospital Course: Discharge diagnosis: 1. Mandibular abscess 2. Urinary tract infection 3. Hyponatremia 4. COVID-19 PCR test negative Hospital course: Patient is a pleasant 69-year-old lady who was admitted to the hospital on March 12, 2020 for cellulitis involving the mental and submental regions with possible vestibular, perimandibular abscess in the mandibular labial region. She was seen by infectious diseases and OMFS services. On March 15 she underwent transoral incision and drainage of mandibular labial vestibular abscess. She also had urinary tract infection at the time of admission. Urine culture grew presumptive dyscrasia coli. Final culture showed 3 or more different organisms indicating probable contamination from improper collection or delay transfer to laboratory. Culture of the mandibular abscess grew Streptococcus anginosus, Fusobacterium and anaerobic gram-negative rods and anaerobic cocci. She had a PICC line placed. She was treated with meropenem during the hospitalization. She will be started on ertapenem as outpatient. Many thanks for allowing me to participate in your patient's care. Please feel free to contact me with any questions or concerns. Discharge destination: Home Total amount of time spent coordinating this discharge: 32 minutes Resuscitation Status: 03/12/20 20:53 Resuscitation Status Routine Resuscitation Status: FULL: Full Resuscitation - Labs Lab Results: 03/20/20 06:34 03/20/20 06:34 Abnormal Lab Results - Last 48 hrs 03/19/20 06:20: Sodium 133 L, BUN 6 L, Creatinine 0.56 L 03/19/20 06:20: WBC 3.3 L, RBC 2.62 L, Hgb 8.8 L, Hct 25.9 L, MCV 99.1 H, MCH 33.4 H, MPV 5.6 L, Band Neuts % (Manual) 2 L, Lymphocytes % (Manual) 19 L, Monocytes % (Manual) 18 H 03/20/20 06:34: Sodium 134 L, Chloride 97 L, BUN 5 L, Creatinine 0.55 L 03/20/20 06:34: WBC 3.3 L, RBC 2.67 L, Hgb 8.8 L, Hct 26.5 L, MCV 98.9 H, MCH 32.7 H, MPV 5.5 L, Monocytes % 14.8 H Microbiology - Entire Visit 03/14/20 17:47 Mandible - Abscess Bacterial Culture - Final Streptococcus anginosus Group 03/14/20 17:47 Mandible - Abscess Anaerobic Culture - Final Fusobacterium species Anaerobic cocci Anaerobic Gram Negative Nba Anaerobic cocci#2 03/13/20 09:18 Urine clean catch Urine Culture - Final Presumptive Escherichia coli - Physical Exam Vitals: Vital Signs (12 hours) Temp Pulse Resp BP Pulse Ox 03/20/20 07:55 98.5 F 78 18 156/70 H 98 Weight Weight 107 lb Physical Exam: The patient was seen and examined on the day of discharge. Patient denies chest pain or shortness of breath. Vital signs are stable. S1 and S2 are heard. Lungs are clear to auscultation bilaterally. Plan - Discharge Medications Prescriptions: Chlorhexidine Gluconate [Chlorhexidine Gluconate 0.12% Oral Rinse] 15 ml SSP BID #1 mouthwash Home Medications: Medication Instructions Recorded Confirmed Type ALPRAZolam [Xanax] 0.5 mg PO BID PRN 03/13/20 03/13/20 History Aspirin [Ecotrin] 81 mg PO DAILY 03/13/20 03/13/20 History Calcium Carbonate [Caltrate] 600 mg PO 1700 03/13/20 03/13/20 History Ferrous Sulfate [Slow Fe] 142 mg PO Q2DAYS 03/13/20 03/13/20 History Folic Acid [Folvite] 1 mg PO DAILY 03/13/20 03/13/20 History Furosemide [Lasix] 20 mg PO DAILY 03/13/20 03/13/20 History Hydroxychloroquine Sulfate 200 mg PO DAILY 03/13/20 03/13/20 History [Plaquenil] Levothyroxine Sodium [Synthroid] 50 mcg PO DAILY 03/13/20 03/13/20 History Macitentan [Opsumit] 10 mg PO HS 03/13/20 03/13/20 History Methotrexate Sodium [Methotrexate] 2.5 mg PO Q7D 03/13/20 03/13/20 History Mineral Oil/Petrolatum,White 0.25 inch EA EYE SEEPHYS 03/13/20 03/13/20 History [Retaine PM Eye Ointment] Multivit-Min/FA/Lycopen/Lutein 1 each PO Q2DAYS 03/13/20 03/13/20 History [Centrum Silver Tablet] Omega3/DHA/EPA/Fish Oil/Vit D3 1 cap PO 1700 03/13/20 03/13/20 History [Mtdab-7-Docb Oil-Vitamin D3 Softgel] Risedronate Sodium [Atelvia] 35 mg PO Q7D 03/13/20 03/13/20 History Sodium Chloride 1 gm PO DAILY 03/13/20 03/13/20 History Tadalafil [Adcirca] 20 mg PO QPM-WM 03/13/20 03/13/20 History Chlorhexidine Gluconate 15 ml SSP BID #1 mouthwash 03/20/20 Rx [Chlorhexidine Gluconate 0.12% Oral Rinse] Allergies: azithromycin Allergy (Verified 03/12/20 22:24) nitrofurantoin [From Macrobid] Allergy (Verified 03/12/20 22:24) Penicillins Allergy (Verified 03/13/20 00:49) PER PT prednisone Allergy (Verified 03/12/20 22:24) - Discharge Instructions Discharge Instructions:: IV antibiotic (ertapenem) per Dr. Piña office. Activity:: Activity as Tolerated Nourishment:: Regular Diet - Follow up Plan Referrals: KRISTEN MURRAY MD [MD Not on Staff] - 3 Days Orville Lantigua DDS, MD [Active] - 14 Days Joshua Piña MD [Active] - 10 Days Matt Moore MD [Primary Care Provider] - Disposition: HOME Quality - Care Measures CORE MEASURES:: N/A
[2020-03-20] MEDS: Tadalafil [Adcirca] 20 MG PO SCH (16:45)
[2020-03-20] MEDS: Calcium Carbonate 600 MG TAB PO SCH (16:45)
[2020-03-20] MEDS: Fish Oil 1,000 MG CAP PO SCH (16:45)
== END 2020-03-20 18:20 | disposition home or self-care (01) | DRG 137 ==
LOC: ONC 17:02 → INTOOBSV 17:02 → OBSVTOIN 17:02
PROVIDERS: ADMIT Internal Medicine; ATTEND Internal Medicine
PROC: 0W950ZZ Drainage of Lower Jaw, Open Approach (ICD-10-PCS; principal; 2020-03-14)
PROC: 02HV33Z Insertion of Infusion Device into Superior Vena Cava, Percutaneous Approach (ICD-10-PCS; 2020-03-20)
PROC: B5181ZA Fluoroscopy of Superior Vena Cava using Low Osmolar Contrast, Guidance (ICD-10-PCS; 2020-03-20)
PROC: B548ZZA Ultrasonography of Superior Vena Cava, Guidance (ICD-10-PCS; 2020-03-20)
DX: M27.2 Inflammatory conditions of jaws (principal); E87.1 Hypo-osmolality and hyponatremia; K12.2 Cellulitis and abscess of mouth; M87.180 Osteonecrosis due to drugs, jaw; N39.0 Urinary tract infection, site not specified; M34.1 CR(E)ST syndrome; I27.20 Pulmonary hypertension, unspecified; D63.8 Anemia in other chronic diseases classified elsewhere; B95.4 Other streptococcus as the cause of diseases classified elsewhere; Z20.828 Contact with and (suspected) exposure to other viral communicable diseases; Z88.0 Allergy status to penicillin; Z88.1 Allergy status to other antibiotic agents; Z88.8 Allergy status to other drugs, medicaments and biological substances
CPT/HCPCS: 36415; 36569; 70491; 80048; 80053; 81001; 85007; 85025; 85027; 87070; 87076; 87086; 87102; 87205; 87206; 87635; 96365; 96366; 96372; C1751; G0378; J1650; J2185; J2250; J3010; J3490; J8610; Q9967; U0003

== ENCOUNTER 2020-04-07 15:25 | Outpatient (CLI) | payer MEDICARE | END 2020-04-07 15:26 | disposition home or self-care (01) | LOC: CTENTCT 15:25 | PROVIDERS: ATTEND Specialist | DX: J32.9 Chronic sinusitis, unspecified (principal) | CPT/HCPCS: 70486 ==